=== PATIENT | female | born 1930 | race Hispanic/Latino ===

== ENCOUNTER 2017-04-13 13:21 | Inpatient (IN) | payer MEDICARE, BC ==
[2017-04-13 13:21] VITALS: PULSE 53
[2017-04-13 14:12] VITALS: BMI 26.9
--- NOTE | 2017-04-13 14:14 | ED PDOC ---
Arrival/HPI - General Chief Complaint: Trauma Time Seen by Provider: 04/13/17 14:05 Historian: Patient, Family (son ) - History of Present Illness Narrative History of Present Illness (Text): 04/13/17 14:11 A 87 year old female, whose past medical history includes CHF, Atrial fibrillation with RVR, pulmonary hypertension, hyperlipidemia, presents to the emergency department accompanied by son, for status post fall. The patient states she was startled out of bed because she believed she heard a knock on the door so when she got up her left leg went numb and she fell to the ground. The patient states she went straight down on to her buttock and did not hit her head or any other parts of the body. The patient is complaining of left hip pain that radiates to her left lower back. She denies any loss of consciousness , chest pain, abdominal pain, headaches, or any other complaints at this time. Time/Duration: 4-6 hours Symptom Onset: Sudden Severity Level: Mild Activities at Onset: Other Context: Other (fall ) Past Medical History - Provider Review Nursing Documentation Reviewed: Yes - Infectious Disease Hx of Infectious Diseases: None - Tetanus Immunization Tetanus Immunization: Unknown - Cardiac Hx Cardiac Disorders: Yes (Afib (on coumadin)) Hx Congestive Heart Failure: Yes Hx Hypertension: Yes - Pulmonary Hx Respiratory Disorders: Yes Other/Comment: pulmonary htn - Neurological Hx Neurological Disorder: No - HEENT Hx Cataracts: Yes (b/l EYE CATARACT SURGERY) - Renal Hx Renal Disorder: No - Endocrine/Metabolic Hx Endocrine Disorders: No - Hematological/Oncological Hx Blood Transfusions: No Hx Blood Transfusion Reaction: No - Integumentary Hx Dermatological Disorder: No Other/Comment: ble dry discolored brown skin,b/l feet brown discolored skin and long thick toenails, right foot crooked toes unable to spread toes open, callouses r ft toes 2 and 3, b/l bunyons, reddened buttocks ( from previous triage) - Musculoskeletal/Rheumatological Hx Musculoskeletal Disorders: Yes Hx Arthritis: Yes Hx Falls: Yes - Gastrointestinal Hx Gastrointestinal Disorders: No - Genitourinary/Gynecological Hx Reproductive Disorders: No - Psychiatric Hx Depression: No Hx Emotional Abuse: No Hx Physical Abuse: No Hx Substance Use: No - Surgical History Other/Comment: pt "can't remember what" - Anesthesia Hx Anesthesia: Yes Hx Anesthesia Reactions: No Hx Malignant Hyperthermia: No - Suicidal Assessment Feels Threatened In Home Enviroment: No Family/Social History - Physician Review Nursing Documentation Reviewed: Yes Family/Social History: No Known Family HX Smoking Status: Never Smoked Hx Alcohol Use: No Hx Substance Use: No Hx Substance Use Treatment: No Allergies/Home Meds Allergies/Adverse Reactions: Allergies No Known Allergies Allergy (Verified 04/13/17 14:05) Home Medications: Home Meds Medication Instructions Recorded Confirmed Magnesium Oxide [Mag-Ox] 400 mg PO DAILY 11/16/15 04/13/17 Folic Acid 1 mg PO DAILY 12/26/15 06/20/16 Pantoprazole [Protonix EC Tab] 40 mg PO DAILY 12/26/15 04/13/17 Tadalafil [Adcirca] 40 mg PO BID 06/15/16 04/13/17 Fenofibrate [Tricor] 48 mg PO DAILY 04/13/17 04/13/17 Warfarin [Coumadin] 7 mg PO 1800 04/13/17 04/13/17 Review of Systems - Physician Review All systems were reviewed & negative as marked: Yes - Review of Systems Cardiovascular: absent: Chest Pain Gastrointestinal: absent: Abdominal Pain Musculoskeletal: Back Pain (left lower back pain ), Other (left hip pain ) Physical Exam Vital Signs Reviewed: Yes Vital Signs Temp Pulse Resp BP Pulse Ox 04/13/17 15:08 79 18 145/74 98 04/13/17 14:10 98.0 F 85 18 146/96 H 97 Appearance: Positive for: Well-Appearing, Non-Toxic, Comfortable Pain Distress: None Mental Status: Positive for: Alert and Oriented X 3 - Systems Exam Head: Present: Atraumatic, Normocephalic Pupils: Present: PERRL Extroacular Muscles: Present: EOMI Conjunctiva: Present: Normal Mouth: Present: Moist Mucous Membranes Nose (Internal): No: Epistaxis Neck: Present: Normal Range of Motion. No: MIDLINE TENDERNESS Respiratory/Chest: Present: Clear to Auscultation, Good Air Exchange. No: Respiratory Distress, Accessory Muscle Use Cardiovascular: Present: Regular Rate and Rhythm. No: Murmurs Abdomen: No: Tenderness, Distention, Peritoneal Signs Back: No: Midline Tenderness Upper Extremity: Present: Normal ROM, NORMAL PULSES. No: Cyanosis, Edema Lower Extremity: Present: NORMAL PULSES, Other (LLE NVI). No: Edema, CALF TENDERNESS, Normal ROM (decreased ROM due to left hip pain ) Neurological: Present: GCS=15, Motor Func Grossly Intact, Normal Sensory Function Skin: Present: Warm, Dry. No: Rashes Psychiatric: Present: Alert, Oriented x 3 Medical Decision Making ED Course and Treatment: 04/13/17 14:[address] Kohler will admit, req consult Dr Castañeda disc w Dr Castañeda - RAD Interpretation Radiology Orders: 04/13/17 14:11 Hip Left [HIP MIN 2V W/ PELVIS LT] [RAD] Stat 04/13/17 14:12 CHEST ONE VIEW [RAD] Stat - Medication Orders Current Medication Orders: Diltiazem HCl (Cardizem Cd) 240 mg PO DAILY [facility] Docusate Sodium (Colace) 100 mg PO DAILY [facility] Fenofibrate (Tricor) 48 mg PO DAILY [facility] Ferrous Sulfate (Feosol Liq) 300 mg PO TID [facility] Furosemide (Lasix) 40 mg PO DAILY [facility] Losartan Potassium (Cozaar) 100 mg PO DAILY [facility] Magnesium Oxide (Mag-Ox) 400 mg PO DAILY [facility] Morphine Sulfate (Morphine) 2 mg IVP Q4H PRN PRN Reason: Pain, severe (8-10) Pantoprazole Sodium (Protonix Ec Tab) 40 mg PO DAILY [facility] Sildenafil Citrate (Revatio) 10 mg PO TID [facility] Sotalol HCl (Betapace) 80 mg PO BID [facility] Discontinued Medications Ibuprofen (Motrin Tab) 600 mg PO STAT STA Stop: 04/13/17 14:10 Last Admin: 04/13/17 14:01 Dose: 600 mg MAR Pain/Vitals Document 04/13/17 14:01 SE (Rec: 04/13/17 14:10 SE [id number]) Pain Reassessment Is This A Pain ReAssessment? No Sleep Is patient sleeping during reassessment? No Presence of Pain Presence of Pain Yes Pain Scale Used Pain Scale Used Numeric Location Left, Right or Bilateral Left Pain Location Body Site Thigh Morphine Sulfate (Morphine) 2 mg IVP STAT STA Stop: 04/13/17 15:00 Last Admin: 04/13/17 15:24 Dose: 2 mg MAR Pain Assessment Document 04/13/17 15:24 EQ (Rec: 04/13/17 15:24 EQ [id number]) Pain Reassessment Is this a pain reassessment? No Sleep Is patient sleeping during reassessment? No Presence of Pain Presence of Pain Yes IVP Administration Document 04/13/17 15:24 EQ (Rec: 04/13/17 15:24 EQ [id number]) Charges for Administration # of IVP Administrations 1 Potassium Chloride (K-Dur 20 Meq Er Tab) 40 meq PO STAT STA Stop: 04/13/17 16:41 Last Admin: 04/13/17 17:08 Dose: 40 meq - Scribe Statement The provider has reviewed the documentation as recorded by the Abhilash Alegre Provider Scribe Attestation: All medical record entries made by the Abhilash were at my direction and personally dictated by me. I have reviewed the chart and agree that the record accurately reflects my personal performance of the history, physical exam, medical decision making, and the department course for this patient. I have also personally directed, reviewed, and agree with the discharge instructions and disposition. Disposition/Present on Arrival - Present on Arrival Any Indicators Present on Arrival: No History of DVT/PE: No History of Uncontrolled Diabetes: No Urinary Catheter: No History of Decub. Ulcer: No History Surgical Site Infection Following: None - Disposition Have Diagnosis and Disposition been Completed?: Yes Diagnosis: Closed left hip fracture Disposition: HOSPITALIZED Disposition Time: 14:54 Patient Problems: Current Active Problems Problem Status Onset Closed left hip fracture Acute Condition: STABLE
--- NOTE | 2017-04-13 14:57 | RAD ---
PROCEDURE: Pelvis and left hip HISTORY: fall pain COMPARISON: TECHNIQUE: Three views FINDINGS: There is a displaced subcapital hip fracture on the left side. The pelvis is intact. The right hip is unremarkable IMPRESSION: Displaced left-sided subcapital hip fracture
--- NOTE | 2017-04-13 14:58 | RAD ---
PROCEDURE: CHEST RADIOGRAPH, 1 VIEW HISTORY: fall COMPARISON: 12/26/2015 FINDINGS: LUNGS: Clear. PLEURA: No pneumothorax or pleural fluid seen. CARDIOVASCULAR: Mild cardiomegaly OSSEOUS STRUCTURES: Vertebroplasties in the mid thoracic spine VISUALIZED UPPER ABDOMEN: Normal. OTHER FINDINGS: None. IMPRESSION: No active disease.
[2017-04-13] MEDS ORDERED: Morphine 2 mg/ml ISec IVP STA (14:59)
[2017-04-13 15:40] LABS: BASO # 0.02 K/mm3 (0.0-2.0); BASO % 0.2 % (0.0-3.0); EOS % 0.1 % (1.5-5.0); GRAN # 9.43 (1.4-6.5); HEMATOCRIT 39.1 % (36.0-48.0); LYMPH # 0.5 (1.2-3.4); LYMPH % 4.8 % (22.0-35.0); MEAN CELL VOLUME 63.8 fl (80.0-105.0); MEAN CORPUSCULAR HEMOGLOBIN 21.2 pg (25.0-35.0); MEAN CORPUSCULAR HGB CONC 33.2 g/dl (31.0-37.0); MEAN PLATELET VOLUME 9.3 fl (7.0-11.0); MONO % 8.9 % (1.0-6.0); PLATELET COUNT 189 10^3/uL (120.0-450.0); RED CELL DISTRIBUTION WIDTH 15.9 % (11.5-14.5)
--- NOTE | 2017-04-13 15:41 | CP.PCM.HP ---
History of Present Illness - History of Present Illness History of Present Illness: CC: Left hip pain s/p fall HPI: Mrs. Juan José Dave is an 87 y/o female with a pmhx of Afib, CHF, HTN, Pulm HTN, HLD, SUSIE. Osteoarthritis, hypokalemia presents to ED with L hip pain after a fall. Pt notes that she was laying down sleeping, when she awoke, stood up from the couch and attempted to walk. She notes that she had numbness and tingling in the L leg and had fell on the L hip after 2 steps. She reports that the only part of her body that hit the ground was her hip. She had laid on the floor for ~3 hours and eventually crawled to phone and called son for help. Pt notes a sharp constant pain that is mostly on the L posterior femoral head region with radiation to anterior hip region. She rates the pain a 10/10 severity with minimal improvement with ibuprofen 650mg. She reported no loss of consciousness, dizziness, fatigue, lethargy or palpitations prior to and after the fall. She lives by herself, and is mostly independent with help from a skip operator 3 days/week. Upon ROS, pt notes denies headache, nausea, vomiting, generalized weakness, dizziness, confusion, chest pain, palpitations or SOB. PMH: See HPI PSH: Kyphoplasty L2-L3, L3-L4, cholecystectomy, b/l cataract surgery Famhx: none Allergies: NKDA Meds: Cardizem 240 q/d, warfarin 7 mg qd, tadalafil 40mg bid, sotalol 80mg bid, protonix 40mg qd, Mg oxide 400mg qd, Losartan 100mg qd, Lasix 40mg qd, Ferrous sulfate 300mg tid, Fenofibrate 48mg qd Cardio: Dr. Johnson Pulm: Dr. Yates Present on Admission - Present on Admission Any Indicators Present on Admission: No Review of Systems - Review of Systems Review of Systems: 12 point ROS benign otherwise noted in HPI Past Patient History - Infectious Disease Hx of Infectious Diseases: None - Tetanus Immunizations Tetanus Immunization: Unknown - Past Medical History & Family History Past Medical History?: Yes - Past Social History Smoking Status: Never Smoked Alcohol: None Drugs: Denies - CARDIAC Hx Cardiac Disorders: Yes (Afib (on coumadin)) Hx Congestive Heart Failure: Yes Hx Hypertension: Yes - PULMONARY Hx Respiratory Disorders: Yes Other/Comment: pulmonary htn - NEUROLOGICAL Hx Neurological Disorder: No - HEENT Hx Cataracts: Yes (b/l EYE CATARACT SURGERY) - RENAL Hx Chronic Kidney Disease: No - ENDOCRINE/METABOLIC Hx Endocrine Disorders: No - HEMATOLOGICAL/ONCOLOGICAL Hx Blood Transfusions: No Hx Blood Transfusion Reaction: No - INTEGUMENTARY Hx Dermatological Problems: No Other/Comment: ble dry discolored brown skin,b/l feet brown discolored skin and long thick toenails, right foot crooked toes unable to spread toes open, callouses r ft toes 2 and 3, b/l bunyons, reddened buttocks ( from previous triage) - MUSCULOSKELETAL/RHEUMATOLOGICAL Hx Musculoskeletal Disorders: Yes Hx Arthritis: Yes Hx Falls: Yes - GASTROINTESTINAL Hx Gastrointestinal Disorders: No - GENITOURINARY/GYNECOLOGICAL Hx Reproductive Disorders: No - PSYCHIATRIC Hx Depression: No Hx Emotional Abuse: No Hx Physical Abuse: No Hx Substance Use: No - SURGICAL HISTORY Other/Comment: pt "can't remember what" - ANESTHESIA Hx Anesthesia: Yes Hx Anesthesia Reactions: No Hx Malignant Hyperthermia: No Meds Allergies/Adverse Reactions: Allergies Allergy/AdvReac Type Severity Reaction Status Date / Time No Known Allergies Allergy Verified 04/13/17 14:05 Physical Exam - Constitutional Appears: No Acute Distress - Head Exam Head Exam: ATRAUMATIC, NORMAL INSPECTION, NORMOCEPHALIC - Eye Exam Eye Exam: EOMI, PERRL - ENT Exam ENT Exam: Mucous Membranes Moist - Respiratory Exam Respiratory Exam: Rales (left lower base - mild), NORMAL BREATHING PATTERN - Cardiovascular Exam Cardiovascular Exam: Irregular Rhythm. absent: Clicks, Systolic Murmur - GI/Abdominal Exam GI & Abdominal Exam: Normal Bowel Sounds, Soft. absent: Firm, Guarding, Tenderness - Extremities Exam Extremities exam: Positive for: pedal edema (+1 bilateral ). Negative for: calf tenderness Additional comments: Left lower hip pain with palpation, tender to log roll of left lower extremity - Neurological Exam Neurological exam: Alert, Oriented x3 Additional comments: motor and sensory grossly intact - Psychiatric Exam Psychiatric exam: Normal Affect, Normal Mood - Skin Skin Exam: Normal Color, Warm Results - Vital Signs Recent Vital Signs: Last Vital Signs Temp 98.0 F 04/13/17 14:10 Pulse 79 04/13/17 15:08 Resp 18 04/13/17 15:08 BP 145/74 04/13/17 15:08 Pulse Ox 98 04/13/17 15:08 - Labs Result Diagrams: 04/14/17 06:00 04/14/17 06:00 Assessment & Plan - Assessment and Plan (Free Text) Assessment: 87 y/o female with a pmhx of Afib, CHF, HTN, Pulm HTN, HLD, iron deficiency anemia, osteoarthritis, hypokalemia presents to ED with L hip pain after a mechanical fall. Patient to be admitted and evaluated by orthopedic surgery for possible intervention Plan: 1. Left subcapital hip fracture - Hip xray showing displaced subcapital hip fracture on left side, pelvis intact - Orthopedic consult with Dr. Douglas - Type and Screen - Pain control with 2mg Morphine IV Q4H PRN severe pain - Spoke with orthopedic service, Physician aware of case will be calling for recommendations and orders regarding INR and anti coagulation therapy going forward 2. Atrial fibrillation, Chronic, AC with coumadin - EKG showing atrial flutter - PT, INR - F/u INR for AC therapy going forward - Cardio Consult with Dr. Johnson, f/u recs 3. CHF - Last known EF 43% in 11/2015 - Continue Lasix, losartan, cardizem - Cardio consult, Dr. Johnson 4. Pulmonary HTN - Taladafil NF, will place patient on sildanifil temporarily while patient family brings in home dose taladafil - Dr. Yates consulted 5. HLD - cont home med DVT ppx: SCDs GI ppx: Protonix Case and plan discussed and reviewed with attending - Date & Time Date: 04/13/17 Time: 15:58
[2017-04-13 15:55] LABS: ALKALINE PHOSPHATASE 82 U/L (38-126); ALT/SGPT 26 U/L (7-56); AST/SGOT 40 U/L (14-36); BILIRUBIN,TOTAL 1.4 mg/dL (0.2-1.3); BLOOD UREA NITROGEN 20 mg/dL (7-21); CALCIUM 9.7 mg/dL (8.4-10.5); CARBON DIOXIDE 25 mmol/L (21-33); CHLORIDE 103 mmol/L (98-107); GFR AFRICAN-AMERICAN > 60; GLUCOSE,RANDOM 125 mg/dL (70-110); POTASSIUM 3.4 mmol/L (3.6-5.0); SODIUM 141 mmol/L (132-148); TOTAL PROTEIN 8.4 g/dL (5.8-8.3)
[2017-04-13 15:58] LABS: INR 2.54 (0.93-1.08); PARTIAL THROMBOPLASTIN TIME 45.8 Seconds (25.1-36.5)
[2017-04-13 16:07] LABS: ALB/GLOB RATIO 1.3 (1.1-1.8)
[2017-04-13] MEDS ORDERED: Potassium Chloride 20 mEq ER Tab PO STA (16:40)
[2017-04-13 16:54] LABS: ANISOCYTOSIS SLIGHT; NEUTROPHIL 85 % (50.0-70.0); PLATELET ESTIMATE NORMAL (NORMAL)
[2017-04-13] MEDS: Ferrous Sulfate 300 mg/5 mL Liq UD PO SCH (17:53)
[2017-04-13] MEDS: Morphine 2 mg/ml ISec IVP PRN (17:54)
[2017-04-13] MEDS ORDERED: Sildenafil 20 MG TAB PO SCH (18:00)
[2017-04-14 02:13] LABS: URINE BILIRUBIN NEGATIVE (NEGATIVE); URINE BLOOD LARGE (NEGATIVE); URINE GLUCOSE (UA) NEGATIVE (NEGATIVE); URINE KETONE NEGATIVE (NEGATIVE); URINE LEUKOCYTE ESTERASE TRACE Leu/uL (NEGATIVE); URINE PROTEIN 30 mg/dL (<30 mg/dL); URINE UROBILINOGEN 0.2 E.U./dL (<1 E.U./dL)
[2017-04-14 02:24] LABS: URINE APPEARANCE SL CLOUDY (CLEAR); URINE COLOR YELLOW (YELLOW)
[2017-04-14 02:58] LABS: URINE BACTERIA MOD (NEG); URINE EPITHELIAL CELLS 0 - 2 /hpf (0-5)
[2017-04-14] MEDS: Morphine 2 mg/ml ISec IVP PRN (05:42)
[2017-04-14 06:49] LABS: INR 2.34 (0.93-1.08)
[2017-04-14 07:37] LABS: BASO # 0.03 K/mm3 (0.0-2.0); BASO % 0.5 % (0.0-3.0); EOS # 0.1 (0.0-0.7); EOS % 1.8 % (1.5-5.0); GRAN # 5.23 (1.4-6.5); GRAN % 78.5 % (50.0-68.0); HEMATOCRIT 37.3 % (36.0-48.0); LYMPH # 0.6 (1.2-3.4); LYMPH % 9.3 % (22.0-35.0); MEAN CELL VOLUME 64.2 fl (80.0-105.0); MEAN CORPUSCULAR HEMOGLOBIN 20.5 pg (25.0-35.0); MEAN CORPUSCULAR HGB CONC 31.9 g/dl (31.0-37.0); MEAN PLATELET VOLUME 10.1 fl (7.0-11.0); MONO # 0.7 (0.1-0.6); MONO % 9.9 % (1.0-6.0); RED CELL DISTRIBUTION WIDTH 15.8 % (11.5-14.5); WHITE BLOOD COUNT 6.7 10^3/ul (4.5-11.0)
--- NOTE | 2017-04-14 07:38 | CON ---
PULMONARY CONSULTATION DATE: 04/14/2017 REFERRING PHYSICIAN: Mahendra Kohler MD REASON FOR CONSULTATION: Pulmonary hypertension. HISTORY OF PRESENT ILLNESS: The patient is an 87-year-old female, with past medical history significant for pulmonary hypertension, congestive heart failure, atrial fibrillation, hypertension, hyperlipidemia, who presents to [facility] after falling at home. Apparently, the patient was lying down on her couch, when she thought she heard somebody at the door. She then tried to gallardo to the door, and fell on her left side. After the fall, she experienced significant left hip pain. In the Emergency Room, the patient was noted to have a left hip fracture. She was thus admitted for additional evaluation. The patient is not short of breath at rest. She does have chronic mild dyspnea on exertion. There is no history of cough or sputum production. There is no history of chest pain, coughing up of blood, or chest pain - made worse with deep respirations. There is no history of temperatures, chills or infectious exposure. There is no history of night sweats, weight loss or appetite change prior to the above events. No history of calf pains. No history of syncope or diaphoresis. No history of recent travel. REVIEW OF SYSTEMS: No history of nausea, vomiting or diarrhea. No acute urinary symptoms. No new neurologic complaints. Rest of the review of systems negative. ALLERGIES: NO KNOWN ALLERGIES SOCIAL HISTORY: Negative for tobacco and negative for alcohol. FAMILY HISTORY: No inheritable diseases. HOME MEDICATIONS: Include Coumadin, Cardizem, Adcirca, Betapace, Protonix, Cozaar, Lasix, Feosol, TriCor and folate. PHYSICAL EXAMINATION GENERAL: The patient appears comfortable at rest. She is not short of breath. VITAL SIGNS (last noted in the computer): Temperature is 98.7, pulse 82, respirations 18, blood pressure 126/94. Oxygen saturation on room air is 95%. HEENT: Normocephalic and atraumatic. No JVD. CARDIOVASCULAR: Systolic ejection murmur at the lower left sternal border. No S3 gallop. LUNGS: Clear bilaterally. EXTREMITIES: Mild edema is noted in both lower extremities. There is no clubbing or cyanosis. The calves are nontender to palpation. GI: Abdomen is soft, nontender and nondistended. Bowel sounds are positive. SKIN: No acute rash. NEUROLOGIC: Exam limited at the present time. LABORATORY DATA: Chest x-ray was done yesterday and reviewed. There is no active disease noted. Hips/pelvic x-ray was also done. There is a displaced left-sided hip fracture noted. CBC: White count 11.0, hemoglobin 13.0, hematocrit 39.1, platelets of 189. INR 2.34. Complete metabolic profile: Potassium 3.4, glucose 125, bilirubin 1.4, AST 40, protein 8.4. Rest of the metabolic profiles within normal limits. IMPRESSION: 1. Left hip fracture, status post fall at home. 2. Pulmonary hypertension. 3. Chronic atrial fibrillation. 4. Hypertension. PLAN: I did discuss the case with the patient at length and reviewed the chart at length. I have also discussed the case with the night nurse at length. Apparently, the patient was rising from her couch to answer the door, when she took a sudden fall on her left side. After the fall, she experienced significant left-sided hip pain. She was thus evaluated in the Emergency Room. In the Emergency Room, she was noted to have a left hip fracture, and subsequently admitted. As above, the patient does experience chronic mild dyspnea on exertion. She offers no other new/significant pulmonary symptoms. On physical exam, her lungs are clear. Oxygen saturation on room air is 95%. I do know the patient well-- from the office. She is on Revatio for her pulmonary hypertension. Since being on the Revatio, she has had a significant decrease in her dyspnea. Again, she offers no new or significant pulmonary symptoms. The patient is for surgery in the near future. She will be at a mildly increased risk for perioperative complications, secondary to her pulmonary hypertension. However, at this point, there are no absolute pulmonary contraindications to surgery. I will be happy to follow the patient closely with you. I will discuss the above with Dr. Kohler later today. Thank you very much for this pulmonary consultation. Abdias Yates MD [facility]
--- NOTE | 2017-04-14 07:40 | CARD ---
APPROVED REPORT EKG Measurement Heart [id number] <Conclusion> Atrial flutter with variable AV block with premature ventricular or aberrantly conducted complexes Prolonged QT Abnormal ECG
[2017-04-14] MEDS ORDERED: Phytonadione 10 mg/ml Inj (Adult) SC ONE (08:04)
[2017-04-14] MEDS: cefTRIAXone 1 gm 1 GM/100 ML BAG IVPB SCH (08:10)
[2017-04-14 08:32] LABS: ALB/GLOB RATIO 1.2 (1.1-1.8); ALKALINE PHOSPHATASE 64 U/L (38-126); ALT/SGPT 27 U/L (7-56); AST/SGOT 38 U/L (14-36); BILIRUBIN,TOTAL 1.8 mg/dL (0.2-1.3); BLOOD UREA NITROGEN 23 mg/dL (7-21); CALCIUM 9.4 mg/dL (8.4-10.5); CARBON DIOXIDE 25 mmol/L (21-33); CHLORIDE 104 mmol/L (98-107); GFR AFRICAN-AMERICAN > 60; GLUCOSE,RANDOM 117 mg/dL (70-110); PHOSPHOROUS 3.2 mg/dL (2.5-4.5); POTASSIUM 4.1 mmol/L (3.6-5.0); SODIUM 140 mmol/L (132-148); TOTAL PROTEIN 7.5 g/dL (5.8-8.3)
--- NOTE | 2017-04-14 08:50 | CP.PCM.PN ---
Subjective - Date & Time of Evaluation Date of Evaluation: 04/14/17 Time of Evaluation: 07:50 - Subjective Subjective: PGY-[address] ALBERT/DR. TALLEY Patient seen and examined at bedside. No acute events reported overnight. Patient complains of left hip pain and some difficulty with breathing. Patient was placed on o2 NC with improvement of symptoms. Patient denies chest pain, abdominal pain, weakness, numbness, n/v/f/c. Patient to be evaluated by cardio and pulmonary today for surgical clearance with ortho for repair of left hip fracture. Patient reports pain controlled. Objective - Vital Signs/Intake and Output Vital Signs (last 24 hours): Temp Pulse Resp BP Pulse Ox 98.7 F 82 20 126/94 H 95 04/14/17 00:00 04/14/17 00:00 04/14/17 00:00 04/14/17 00:00 04/14/17 00:00 Intake and Output: 04/14/17 04/14/17 06:59 18:59 Intake Total 360 Output Total 350 Balance 10 - Medications Medications: Current Medications Diltiazem HCl (Cardizem Cd) 240 mg PO DAILY [facility] Docusate Sodium (Colace) 100 mg PO DAILY [facility] Fenofibrate (Tricor) 48 mg PO DAILY [facility] Ferrous Sulfate (Feosol Liq) 300 mg PO TID [facility] Last Admin: 04/13/17 17:53 Dose: 300 mg Furosemide (Lasix) 40 mg PO DAILY [facility] Ceftriaxone Sodium (Rocephin 1 Gram Ivpb (D5w)) 1 gm in 100 mls @ 100 mls/hr IVPB Q24H [facility] PRN Reason: Protocol Last Admin: 04/14/17 08:10 Dose: 100 mls/hr Losartan Potassium (Cozaar) 100 mg PO DAILY [facility] Magnesium Oxide (Mag-Ox) 400 mg PO DAILY [facility] Morphine Sulfate (Morphine) 2 mg IVP Q4H PRN PRN Reason: Pain, severe (8-10) Last Admin: 04/14/17 05:42 Dose: 2 mg Pantoprazole Sodium (Protonix Ec Tab) 40 mg PO DAILY [facility] Sildenafil Citrate (Revatio) 10 mg PO TID [facility] Last Admin: 04/13/17 17:52 Dose: 10 mg Sotalol HCl (Betapace) 80 mg PO BID [facility] Last Admin: 04/13/17 17:53 Dose: 80 mg - Labs Labs: 04/14/17 06:00 04/14/17 06:00 PT 26.2 SECONDS (9.4-12.5) H 04/14/17 06:00 INR 2.34 (0.93-1.08) H 04/14/17 06:00 APTT 45.8 Seconds (25.1-36.5) H 04/13/17 15:15 - Constitutional Appears: Non-toxic - Head Exam Head Exam: ATRAUMATIC, NORMAL INSPECTION, NORMOCEPHALIC - Eye Exam Eye Exam: EOMI, PERRL Pupil Exam: PERRL - ENT Exam ENT Exam: Mucous Membranes Moist - Neck Exam Neck Exam: Full ROM - Respiratory Exam Respiratory Exam: Rales (mild R>L), NORMAL BREATHING PATTERN. absent: Rhonchi, Wheezes - Cardiovascular Exam Cardiovascular Exam: Irregular Rhythm. absent: JVD - GI/Abdominal Exam GI & Abdominal Exam: Soft, Normal Bowel Sounds. absent: Tenderness - Extremities Exam Extremities Exam: Pedal Edema (+1). absent: Calf Tenderness, Tenderness Additional comments: Left Hip tender to palpation lateral, left lower extremity log roll ilicit pain response - Neurological Exam Neurological Exam: Alert, Awake, Oriented x3 Additional comments: motor and sensory groslsy intact, able to move all four extremities - Psychiatric Exam Psychiatric exam: Normal Affect, Normal Mood - Skin Skin Exam: Dry, Normal Color Assessment and Plan - Assessment and Plan (Free Text) Assessment: 87 y/o female with a pmhx of Afib, CHF, HTN, Pulm HTN, HLD, iron deficiency anemia, osteoarthritis, hypokalemia presents to ED with L hip pain after a mechanical fall. Patient undergoing evaluation and management of chronic diseases and for potential surgical intervention of left hip fracture Plan: 1. Left subcapital hip fracture - Hip xray showing displaced subcapital hip fracture on left side, pelvis intact - Orthopedic consult with Dr. Douglas - Type and Screen - Pain control with 2mg Morphine IV Q4H PRN severe pain - Patient reciveing vitamin K for INR, awaiting drop in INR for surgery - PT/OT eval and tx s/p surgery 2. Atrial fibrillation, Chronic, AC with coumadin - EKG showing atrial flutter - holding coumadin at this time - PT, INR - Cardio Consult with Dr. Johnson, f/u recs 3. CHF - Last known EF 43% in 11/2015 - Continue Lasix, losartan, cardizem - Cardio consult, Dr. Johnson 4. Pulmonary HTN - Continue home tildalafil - Dr. Yates consulted, following 5. HLD - cont home med DVT ppx: SCDs GI ppx: Protonix Case and plan discussed and reviewed with attending
--- NOTE | 2017-04-14 09:39 | CON ---
DATE: 04/14/2017 HISTORY OF PRESENT ILLNESS: The patient is an 87-year-old woman with a left hip fracture after a fall out of bed. No loss of consciousness noted. PAST MEDICAL HISTORY: The patient's past medical history includes documented severe pulmonary hypertension in which she has been treated by Pulmonary. In addition, the patient has a documented cardiomyopathy with an ejection fraction of 40%. She suffers from hypertension as well as chronic atrial fibrillation which she has been treated with Coumadin. The patient denies loss of consciousness. No chest pain. She has chronic dyspnea. SOCIAL HISTORY: The patient is a former smoker. REVIEW OF SYSTEMS: 14-point review of systems was reviewed in detail. No angina. Negative edema in the lower extremities. No loss of consciousness, but chronic edema which is better on oxygen. PHYSICAL EXAMINATION: VITAL SIGNS: Blood pressure is 126/94, heart rate in the 80s, atrial fibrillation. NECK: Negative JVD. LUNGS: Without rales. HEART: S1, S2. EXTREMITIES: Without edema. DIAGNOSTIC DATA: EKG shows atrial fibrillation with nonspecific ST-T changes. LABORATORY DATA: The INR is 2.34. Chemistries, BUN and creatinine unremarkable. The glucose is 125. The hemoglobin is 11.9.. IMPRESSION: 1. Left hip fracture. 2. Status post fall without syncope. 3. Chronic atrial fibrillation. 4. Severe pulmonary hypertension. 5. Mild dilated cardiomyopathy. 6. Anemia. PLAN: Given these findings, we will need to reverse her coagulation with vitamin K in preparation for surgery. The patient is at increased risk for anesthesia given her severe pulmonary hypertension, her age as well as her mild cardiomyopathy. However, risks, benefit analysis will require that she undergo surgery to fix her hip as soon as possible. Toro Johnson MD
[2017-04-14] MEDS ORDERED: TADALAFIL 40 MG PO SCH (10:00)
[2017-04-14] MEDS ORDERED: Home Med 1 UNIT PO SCH (10:00)
[2017-04-14] MEDS: diltiaZEM 240 mg/24 Hours CD Cap PO SCH (10:26)
[2017-04-14] MEDS: Pantoprazole 40 mg EC Tab PO SCH (10:28)
[2017-04-14] MEDS: Ferrous Sulfate 300 mg/5 mL Liq UD PO SCH ×3 (10:28→18:16)
[2017-04-14] MEDS: Magnesium Oxide 400 mg Tab UD PO SCH (10:28)
[2017-04-14] MEDS ORDERED: TADALAFIL 20MG PO SCH (10:51)
[2017-04-14 12:53] LABS: INR 2.27 (0.93-1.08)
[2017-04-15] MEDS: cefTRIAXone 1 gm 1 GM/100 ML BAG IVPB SCH (07:25)
[2017-04-15 08:11] LABS: BASO # 0.02 K/mm3 (0.0-2.0); BASO % 0.2 % (0.0-3.0); EOS # 0.1 (0.0-0.7); EOS % 0.7 % (1.5-5.0); GRAN # 6.17 (1.4-6.5); GRAN % 76.9 % (50.0-68.0); HEMATOCRIT 37.1 % (36.0-48.0); LYMPH # 0.7 (1.2-3.4); LYMPH % 9.1 % (22.0-35.0); MEAN CORPUSCULAR HEMOGLOBIN 20.9 pg (25.0-35.0); MEAN CORPUSCULAR HGB CONC 32.6 g/dl (31.0-37.0); MEAN PLATELET VOLUME 9.4 fl (7.0-11.0); MONO # 1.1 (0.1-0.6); MONO % 13.1 % (1.0-6.0); RED CELL DISTRIBUTION WIDTH 15.6 % (11.5-14.5)
[2017-04-15 08:17] LABS: INR 1.42 (0.93-1.08)
--- NOTE | 2017-04-15 08:29 | CP.PCM.PN ---
Subjective - Date & Time of Evaluation Date of Evaluation: 04/15/17 Time of Evaluation: 06:45 - Subjective Subjective: PGY [address] TALLEY/DR. ALBERT Patient seen and evaluated on medical/surgical floor. No acute events overnight. Patient complains of continued left hip pain as on presentation. Patient denies chest pain, shob, abdominal pain, n/v/f/c. Patient NPO at midnight and pre-surgical abx given. Objective - Vital Signs/Intake and Output Vital Signs (last 24 hours): Temp Pulse Resp BP Pulse Ox 98.6 F 98 H 20 138/99 H 94 L 04/14/17 16:00 04/14/17 16:00 04/14/17 16:00 04/14/17 16:00 04/14/17 16:00 Intake and Output: 04/15/17 04/15/17 06:59 18:59 Intake Total 480 Output Total 600 Balance -120 - Medications Medications: Current Medications Diltiazem HCl (Cardizem Cd) 240 mg PO DAILY [facility] Last Admin: 04/14/17 10:26 Dose: 240 mg Docusate Sodium (Colace) 100 mg PO DAILY [facility] Last Admin: 04/14/17 10:27 Dose: 100 mg Fenofibrate (Tricor) 48 mg PO DAILY [facility] Last Admin: 04/14/17 10:26 Dose: 48 mg Ferrous Sulfate (Feosol Liq) 300 mg PO TID [facility] Last Admin: 04/14/17 18:16 Dose: Not Given Furosemide (Lasix) 40 mg PO DAILY [facility] Last Admin: 04/14/17 10:28 Dose: 40 mg Home Med (Home Med) 0 unit PO DAILY [facility] Ceftriaxone Sodium (Rocephin 1 Gram Ivpb (D5w)) 1 gm in 100 mls @ 100 mls/hr IVPB Q24H [facility] PRN Reason: Protocol Last Admin: 04/15/17 07:25 Dose: 100 mls/hr Losartan Potassium (Cozaar) 100 mg PO DAILY [facility] Last Admin: 04/14/17 10:28 Dose: 100 mg Magnesium Oxide (Mag-Ox) 400 mg PO DAILY [facility] Last Admin: 04/14/17 10:28 Dose: 400 mg Morphine Sulfate (Morphine) 2 mg IVP Q4H PRN PRN Reason: Pain, severe (8-10) Last Admin: 04/14/17 05:42 Dose: 2 mg Pantoprazole Sodium (Protonix Ec Tab) 40 mg PO DAILY [facility] Last Admin: 04/14/17 10:28 Dose: 40 mg Sotalol HCl (Betapace) 80 mg PO BID [facility] Last Admin: 04/14/17 18:16 Dose: 80 mg - Labs Labs: 04/15/17 07:30 04/14/17 06:00 PT 15.7 SECONDS (9.4-12.5) H 04/15/17 07:30 INR 1.42 (0.93-1.08) H 04/15/17 07:30 APTT 45.8 Seconds (25.1-36.5) H 04/13/17 15:15 - Constitutional Appears: No Acute Distress - Head Exam Head Exam: ATRAUMATIC, NORMAL INSPECTION, NORMOCEPHALIC - Eye Exam Eye Exam: EOMI, PERRL Pupil Exam: PERRL - ENT Exam ENT Exam: Mucous Membranes Moist - Neck Exam Neck Exam: Full ROM - Respiratory Exam Respiratory Exam: Clear to Ausculation Bilateral, NORMAL BREATHING PATTERN - Cardiovascular Exam Cardiovascular Exam: Irregular Rhythm. absent: JVD, Murmur - GI/Abdominal Exam GI & Abdominal Exam: Soft, Normal Bowel Sounds. absent: Tenderness - Extremities Exam Extremities Exam: absent: Calf Tenderness, Pedal Edema - Back Exam Back Exam: tenderness - Neurological Exam Neurological Exam: Alert, Awake, Oriented x3 Additional comments: motor and sensory grossly intact, patient able to move all four extremities - Psychiatric Exam Psychiatric exam: Normal Affect, Normal Mood - Skin Skin Exam: Dry, Warm. absent: Rash Assessment and Plan - Assessment and Plan (Free Text) Assessment: 87 y/o female with a pmhx of Afib, CHF, HTN, Pulm HTN, HLD, iron deficiency anemia, osteoarthritis, hypokalemia presents to ED with L hip pain after a mechanical fall. Patient undergoing evaluation and management of chronic diseases and for potential surgical intervention of left hip fracture Plan: 1. Left subcapital hip fracture - Hip xray showing displaced subcapital hip fracture on left side, pelvis intact - Orthopedic consult with Dr. Douglas, f/u recs - decrease INR, left hemiarthroplasty when appropriate - Pain control with 2mg Morphine IV Q4H PRN severe pain - Vit K for decrease INR, INR 1.42 - PT/OT eval and tx s/p surgery - Patient is at increased risk for anethesia given her comorbitdites including pulm htn, mild cardiomyopathy and age, however risk, benefit analysis requires surgical intervention for her left hip 2. Atrial fibrillation, Chronic, AC with coumadin - EKG showing atrial flutter - holding coumadin at this time - PT, INR cont to monitor - Cardio Consult with Dr. Johnson, f/u recs 3. CHF - Last known EF 43% in 11/2015 - Continue Lasix, losartan, cardizem - Cardio following 4. UTI - UA positive for leuk est, nitrate - Continue antibioitcs 5. Pulmonary HTN - Continue home tildalafil - Dr. Yates consulted, following - okay for surgery, cont revatio for pulm htn 6. HLD - cont home med DVT ppx: SCDs GI ppx: Protonix Case and plan discussed and reviewed with attending
--- NOTE | 2017-04-15 08:36 | PN ---
DATE: 04/15/2017 PULMONARY PROGRESS NOTE SUBJECTIVE: The patient appears comfortable this morning. She is not short of breath at rest. PHYSICAL EXAMINATION: VITAL SIGNS: (Last noted in the computer): Temperature is 98.6, pulse is 98, respirations are 18, and blood pressure is 138/99. Oxygen saturation on room air is between 94% and 96%. HEENT: Normocephalic and atraumatic. NECK: No JVD. CARDIOVASCULAR: Systolic ejection murmur at the lower left sternal border. No S3 gallop. LUNGS: Clear bilaterally. EXTREMITIES: Mild edema is noted in both lower extremities. There is no cyanosis or clubbing. The calves are nontender to palpation. GASTROINTESTINAL: Abdomen is soft, nontender and nondistended. Bowel sounds are positive. SKIN: No acute rash. NEUROLOGIC: Exam is limited at the present time. IMPRESSION 1. Left hip fracture, status post fall at home. 2. Pulmonary hypertension. 3. Chronic atrial fibrillation. 4. Hypertension. PLAN: The patient appears comfortable this morning. She is not short of breath at rest. She does state to feeling better overall. On physical exam, her lungs remain clear. Oxygen saturation on room air is 94% to 96%. The patient will be continued on her Revatio - for her pulmonary hypertension. I did discuss the case with the nurse at length. The patient is for probable surgery this morning. I will follow the patient closely with you. I will discuss the above with Dr. Kholer. Abdias Yates MD MTDD
--- NOTE | 2017-04-15 08:36 | CON ---
DATE: 04/14/2017 INPATIENT CONSULTATION REASON FOR CONSULTATION: Left hip fracture. HISTORY OF PRESENT ILLNESS: Consult is as follows; this is an 87-year-old female who was admitted to the hospital yesterday, status post fall with left hip pain and inability to ambulate. By report the patient is ambulatory. She does have a walker that she uses at home. Today, she complains of pain in her left lower extremity. She denies any other injuries. PHYSICAL EXAMINATION: GENERAL: This is an elderly female in no apparent distress. She is awake, alert, and oriented x3. EXTREMITIES: Examination of the left lower extremity is slightly externally rotated. Some mild shortening is appreciated. She has some ecchymosis noted about the left proximal femur. She has some pain with passive range of motion of the hip. Her thigh is otherwise soft. There is no obvious knee effusion. No gross crepitus or deformity is appreciated. Her calf is soft and nontender. She is able to move her ankle and toes without any pain. Evaluation of the right lower extremity again shows no pain with passive range of motion of the right hip. No obvious swelling or deformity is appreciated. Her thigh and calf are soft and nontender. Neurovascularly, she is intact. LABORATORY DATA: X-rays of the left hip show a displaced left femoral neck fracture. IMPRESSION: Left hip fracture. PLAN: At this point, the patient does have a history of atrial fibrillation and takes Coumadin for this. Her INR today is at 2.3. She is on vitamin K. We will await for the INR to normalize prior to proceeding with left hemiarthroplasty. I did explain this to the patient, as well as her Arya and they understand this. She also was started on some antibiotics for a positive new UA. We will follow up serial INR's and possibly schedule her for surgery in the next day. Wade Castañeda MD
[2017-04-15 08:53] LABS: URINE BILIRUBIN SMALL (NEGATIVE); URINE BLOOD LARGE (NEGATIVE); URINE GLUCOSE (UA) NEGATIVE (NEGATIVE); URINE KETONE NEGATIVE (NEGATIVE); URINE LEUKOCYTE ESTERASE SMALL Leu/uL (NEGATIVE); URINE PROTEIN 30 mg/dL (<30 mg/dL)
[2017-04-15 08:54] LABS: URINE APPEARANCE CLEAR (CLEAR); URINE COLOR YELLOW (YELLOW)
[2017-04-15 09:11] LABS: ALB/GLOB RATIO 1.1 (1.1-1.8); ALKALINE PHOSPHATASE 71 U/L (38-126); ALT/SGPT 24 U/L (7-56); AST/SGOT 34 U/L (14-36); BILIRUBIN,TOTAL 1.4 mg/dL (0.2-1.3); BLOOD UREA NITROGEN 17 mg/dL (7-21); CALCIUM 9.3 mg/dL (8.4-10.5); CARBON DIOXIDE 25 mmol/L (21-33); CHLORIDE 104 mmol/L (98-107); GFR AFRICAN-AMERICAN > 60; GLUCOSE,RANDOM 154 mg/dL (70-110); POTASSIUM 3.7 mmol/L (3.6-5.0); SODIUM 140 mmol/L (132-148); TOTAL PROTEIN 7.5 g/dL (5.8-8.3)
[2017-04-15 09:23] LABS: URINE BACTERIA MANY (NEG); URINE RBC TNTC /hpf (0-2)
[2017-04-15 09:24] LABS: URINE AMORPHOUS SEDIMENT FEW
[2017-04-15] MEDS: Sodium Chloride 0.9% 1,000 ML IV SCH (09:36)
[2017-04-15] MEDS: Magnesium Oxide 400 mg Tab UD PO SCH (09:39)
[2017-04-15] MEDS: Pantoprazole 40 mg EC Tab PO SCH (09:40)
[2017-04-15] MEDS: Ferrous Sulfate 300 mg/5 mL Liq UD PO SCH ×2 (09:41→14:36)
[2017-04-15] MEDS: diltiaZEM 240 mg/24 Hours CD Cap PO SCH (09:43)
[2017-04-15] MEDS: TADALAFIL 20MG PO SCH (11:30)
[2017-04-15 12:29] LABS: INR 1.39 (0.93-1.08)
--- NOTE | 2017-04-15 13:33 | CP.PCM.PN ---
Subjective - Date & Time of Evaluation Date of Evaluation: 04/15/17 Time of Evaluation: 13:31 - Subjective Subjective: ortho f/u Dr. Castañeda lab called regarding urine culture. States >100,000 colonies, likely E. coli sensitivities will be completed tomorrow patient on ceftriaxone Dr. Castañeda aware Objective - Vital Signs/Intake and Output Vital Signs (last 24 hours): Temp Pulse Resp BP Pulse Ox 98.7 F 95 H 20 141/95 H 97 04/15/17 08:00 04/15/17 09:43 04/15/17 08:00 04/15/17 09:43 04/15/17 08:00 Intake and Output: 04/15/17 04/15/17 06:59 18:59 Intake Total 480 Output Total 600 Balance -120 - Medications Medications: Current Medications Diltiazem HCl (Cardizem Cd) 240 mg PO DAILY [facility] Last Admin: 04/15/17 09:43 Dose: 240 mg Docusate Sodium (Colace) 100 mg PO DAILY [facility] Last Admin: 04/15/17 09:40 Dose: 100 mg Fenofibrate (Tricor) 48 mg PO DAILY [facility] Last Admin: 04/15/17 09:49 Dose: 48 mg Ferrous Sulfate (Feosol Liq) 300 mg PO TID [facility] Last Admin: 04/15/17 09:41 Dose: Not Given Furosemide (Lasix) 40 mg PO DAILY [facility] Last Admin: 04/15/17 09:40 Dose: 40 mg Home Med (Home Med) 0 unit PO DAILY [facility] Last Admin: 04/15/17 11:30 Dose: 1 unit Ceftriaxone Sodium (Rocephin 1 Gram Ivpb (D5w)) 1 gm in 100 mls @ 100 mls/hr IVPB Q24H [facility] PRN Reason: Protocol Last Admin: 04/15/17 07:25 Dose: 100 mls/hr Sodium Chloride (Sodium Chloride 0.9%) 1,000 mls @ 50 mls/hr IV .Q20H [facility] Last Admin: 04/15/17 09:36 Dose: 50 mls/hr Losartan Potassium (Cozaar) 100 mg PO DAILY [facility] Last Admin: 04/15/17 09:40 Dose: 100 mg Magnesium Oxide (Mag-Ox) 400 mg PO DAILY [facility] Last Admin: 04/15/17 09:39 Dose: 400 mg Morphine Sulfate (Morphine) 2 mg IVP Q4H PRN PRN Reason: Pain, severe (8-10) Last Admin: 04/14/17 05:42 Dose: 2 mg Pantoprazole Sodium (Protonix Ec Tab) 40 mg PO DAILY [facility] Last Admin: 04/15/17 09:40 Dose: 40 mg Sotalol HCl (Betapace) 80 mg PO BID [facility] Last Admin: 04/15/17 09:43 Dose: 80 mg - Labs Labs: 04/15/17 07:30 04/15/17 07:30 PT 15.4 SECONDS (9.4-12.5) H 04/15/17 12:00 INR 1.39 (0.93-1.08) H 04/15/17 12:00 APTT 45.8 Seconds (25.1-36.5) H 04/13/17 15:15
[2017-04-15] MEDS ORDERED: Lidocaine 1% Inj (20ml) ONE (15:58)
[2017-04-15] MEDS ORDERED: Etomidate 20 mg/10ml Inj IV ONE (15:59)
[2017-04-15] MEDS ORDERED: Bupivacaine 0.5% Inj(30mL) ONE (16:14)
[2017-04-15] MEDS ORDERED: Succinylcholine 200 mg/10 ml Inj IV ONE (17:11)
[2017-04-15] MEDS ORDERED: Rocuronium 10 mg/ml (5 ml) ONE (17:11)
[2017-04-15] MEDS ORDERED: Oxycodone/Acetaminophen 5/325 mg Tab PO PRN (17:13)
--- NOTE | 2017-04-15 17:31 | CARD ---
APPROVED REPORT EXAM: Two-dimensional and M-mode echocardiogram with Doppler and color Doppler. INDICATION PRE-OP/LT HIP FRACTURE/SEVERE PULM HTN 2D DIMENSIONS Left Atrium (2D)5.5 (1.6-4.0cm)IVSd1.0 (0.7-1.1cm) LVDd3.5 (3.9-5.9cm)PWd1.0 (0.7-1.1cm) M-Mode DIMENSIONS Aortic Root3.70 (2.2-3.7cm)Aortic Cusp Exc.1.40 (1.5-2.0cm) Aortic Valve AoV Peak Fvludiyo655.0cm/sAoV VTI27.3cmAO Peak GR.10mmHg LVOT Peak Fbohchlf52.7cm/sLVOT VTI15.30cmAO Mean GR.5mmHg AI P 1/2 [id number] Mitral Valve E/A ratio0.0 TDI E/Lateral E'0.0E/Medial E'0.0 Pulmonary Valve PV Peak Szbyijgb46.5cm/sPV Peak Grad.2mmHg Tricuspid Valve TR Peak [id number]/sRAP [id number] Peak Gr.54mmHg [id number] LEFT VENTRICLE The left ventricle is normal size. There is normal left ventricular wall thickness. Left ventricle systolic function is low normal.EF-50% There is normal LV segmental wall motion. No left ventricle thrombus noted on this study. There is no ventricular septal defect visualized. There is no left ventricular aneurysm. There is no mass noted in the left ventricle. RIGHT VENTRICLE The right ventricle is mildly dilated. There is normal right ventricular wall thickness. The right ventricular systolic function is normal. ATRIA The left atrium is moderate to severely dilated. The right atrium is borderline dilated. The interatrial septum is intact with no evidence for an atrial septal defect. AORTIC VALVE The aortic valve is thickened but opens well. The aortic valve is mildly sclerotic. There is moderate aortic regurgitation. There is no aortic valvular stenosis. There is no aortic valvular vegetation. MITRAL VALVE The mitral valve is thickened but opens well. Mitral annular calcification is mild. Mitral regurgitation is mild to moderate. There is no mitral valve stenosis. There is no evidence of mitral valve prolapse. TRICUSPID VALVE The tricuspid valve leaflets are thickened , but open well. There is moderate to severe tricuspid regurgitation. There is moderate to severe pulmonary hypertension.RVSP-64 mmof hg There is no tricuspid valve stenosis. There is no tricuspid valve prolapse or vegetation. PULMONIC VALVE The pulmonary valve is normal in structure. There is trace to mild pulmonic valvular regurgitation. There is no pulmonic valvular stenosis. GREAT VESSELS The aortic root is normal in size. The ascending aorta is normal in size. The pulmonary artery is normal. The IVC is normal in size and collapses >50% with inspiration. PERICARDIAL EFFUSION There is no pleural effusion. There is no pericardial effusion. <Conclusion> The left ventricle is normal size. There is normal left ventricular wall thickness. Left ventricle systolic function is low normal.EF-50% The right ventricle is mildly dilated. There is moderate aortic regurgitation. Mitral regurgitation is mild to moderate. There is moderate to severe tricuspid regurgitation. There is moderate to severe pulmonary hypertension.RVSP-64 mmof hg The IVC is normal in size and collapses >50% with inspiration. There is no pericardial effusion. No Vegetation or thrombus noted.
--- NOTE | 2017-04-15 18:19 | PN ---
DATE: 04/15/2017 SUBJECTIVE: The patient is comfortable, but anxious, awaiting surgery today. OBJECTIVE: VITAL SIGNS: Blood pressure is 141/94, the heart rate is in the 90s. NECK: Negative JVD. LUNGS: Without rales. HEART: S1, S2. EXTREMITIES: Without edema. LABORATORY DATA: Hemoglobin is 12.1. Chemistries, BUN and creatinine are unremarkable. IMPRESSION: 1. Status post left hip fracture. 2. Severe pulmonary hypertension. 3. Mild dilated cardiomyopathy. 4. Chronic atrial fibrillation. 5. Status post fall. Her INR is still 1.39. The patient may need fresh frozen prior to surgery. The patient is at increased risk for anesthesia, especially given her severe pulmonary hypertension. Toro Johnson MD
[2017-04-15] MEDS ORDERED: Neostigmine Methylsulfate 3mg/3ml Syringe IV ONE (19:51)
[2017-04-15] MEDS ORDERED: Glycopyrrolate 0.2 mg/ml (2ml vial) ONE (19:52)
[2017-04-15] MEDS: HYDROmorphone 0.5 mg/0.5 ml ISec IVP PRN ×2 (20:40→21:25)
[2017-04-15] MEDS ORDERED: Lactated Ringer's 1,000 ML IV SCH (20:45)
[2017-04-15] MEDS ORDERED: HYDROmorphone 0.5 mg/0.5 ml ISec ONE (21:23)
--- NOTE | 2017-04-15 21:53 | CP.PCM.CON ---
<Donald Shaver - Last Filed: 04/15/17 22:11> History of Present Illness - History of Present Illness History of Present Illness: ICU consult note: 87 y/o female with a pmh of Afib, CHF, HTN, Pulm HTN, HLD, SUSIE, Osteoarthritis, who initally presented to the ED with L hip pain following a fall. In the ED the patient had a hip/pelvis xray which showed a displaced L sided sucapital fracture. Pt was taken to the today OR for hip arhtroplasty. Due to pulm htn and extensive past medical history ICU was consulted for evaluation. Pt is currently doing well in the PACU. No complaints at this time. patient states that her pain is well controlled. No complaints. Denies any gonzalez, dizziness, f/c, sob, cp, palpitations, n/v/d. PMH: Afib, CHF, HTN, Pulm HTN, HLD, SUSIE, Osteoarthritis, PSH: Kyphoplasty L2-L3, L3-L4, cholecystectomy, b/l cataract surgery Famhx: denies Allergies: NKA Meds: refer to MAR Review of Systems - Review of Systems All systems: reviewed and no additional remarkable complaints except Past Patient History - Infectious Disease Hx of Infectious Diseases: None - Tetanus Immunizations Tetanus Immunization: Unknown - Past Medical History & Family History Past Medical History?: Yes - Past Social History Smoking Status: Never Smoked Alcohol: None Drugs: Denies - CARDIAC Hx Cardiac Disorders: Yes (Afib (on coumadin)) Hx Congestive Heart Failure: Yes Hx Hypertension: Yes - PULMONARY Hx Respiratory Disorders: Yes Other/Comment: pulmonary htn - NEUROLOGICAL Hx Neurological Disorder: No - HEENT Hx Cataracts: Yes (b/l EYE CATARACT SURGERY) - RENAL Hx Chronic Kidney Disease: No - ENDOCRINE/METABOLIC Hx Endocrine Disorders: No - HEMATOLOGICAL/ONCOLOGICAL Hx Blood Transfusions: No Hx Blood Transfusion Reaction: No - INTEGUMENTARY Hx Dermatological Problems: No Other/Comment: ble dry discolored brown skin,b/l feet brown discolored skin and long thick toenails, right foot crooked toes unable to spread toes open, callouses r ft toes 2 and 3, b/l bunyons, reddened buttocks ( from previous triage) - MUSCULOSKELETAL/RHEUMATOLOGICAL Hx Musculoskeletal Disorders: Yes Hx Arthritis: Yes Hx Falls: Yes - GASTROINTESTINAL Hx Gastrointestinal Disorders: No - GENITOURINARY/GYNECOLOGICAL Hx Reproductive Disorders: No - PSYCHIATRIC Hx Depression: No Hx Emotional Abuse: No Hx Physical Abuse: No Hx Substance Use: No - SURGICAL HISTORY Hx Surgeries: Yes - ANESTHESIA Hx Anesthesia Reactions: No Hx Malignant Hyperthermia: No Meds Allergies/Adverse Reactions: Allergies Allergy/AdvReac Type Severity Reaction Status Date / Time No Known Allergies Allergy Verified 04/13/17 14:05 - Medications Medications: Current Medications Diltiazem HCl (Cardizem Cd) 240 mg PO DAILY [facility] Last Admin: 04/15/17 09:43 Dose: 240 mg Docusate Sodium (Colace) 100 mg PO DAILY [facility] Last Admin: 04/15/17 09:40 Dose: 100 mg Enoxaparin Sodium (Lovenox) 40 mg SC Q24H [facility] PRN Reason: Protocol Fenofibrate (Tricor) 48 mg PO DAILY [facility] Last Admin: 04/15/17 09:49 Dose: 48 mg Ferrous Sulfate (Feosol Liq) 300 mg PO TID [facility] Last Admin: 04/15/17 14:36 Dose: Not Given Furosemide (Lasix) 40 mg PO DAILY [facility] Last Admin: 04/15/17 09:40 Dose: 40 mg Home Med (Home Med) 0 unit PO DAILY [facility] Last Admin: 04/15/17 11:30 Dose: 1 unit Hydromorphone HCl (Dilaudid) 0.5 mg IVP Q15M PRN PRN Reason: Pain, moderate (4-7) Stop: 04/15/17 22:34 Last Admin: 04/15/17 21:25 Dose: 0.5 mg Ceftriaxone Sodium (Rocephin 1 Gram Ivpb (D5w)) 1 gm in 100 mls @ 100 mls/hr IVPB Q24H [facility] PRN Reason: Protocol Last Admin: 04/15/17 07:25 Dose: 100 mls/hr Sodium Chloride (Sodium Chloride 0.9%) 1,000 mls @ 50 mls/hr IV .Q20H [facility] Last Admin: 04/15/17 09:36 Dose: 50 mls/hr Vasopressin 20 units/ Sodium (Chloride) 101 mls @ 90.9 mls/hr IV .Q1H7M JENIFER; 0.3 U/MIN PRN Reason: Protocol Cefazolin Sodium 2 gm/ Sodium (Chloride) 100 mls @ 100 mls/hr IVPB Q8H [facility] PRN Reason: Protocol Stop: 04/16/17 10:59 Lactated Ringer's (Lactated Ringer's) 1,000 mls @ 75 mls/hr IV .[id number] [facility] Stop: 04/15/17 22:46 Losartan Potassium (Cozaar) 100 mg PO DAILY [facility] Last Admin: 04/15/17 09:40 Dose: 100 mg Magnesium Oxide (Mag-Ox) 400 mg PO DAILY [facility] Last Admin: 04/15/17 09:39 Dose: 400 mg Morphine Sulfate (Morphine) 2 mg IVP Q4H PRN PRN Reason: Pain, severe (8-10) Last Admin: 04/14/17 05:42 Dose: 2 mg Ondansetron HCl (Zofran Inj) 4 mg IVP ONCE PRN PRN Reason: Nausea/Vomiting Oxycodone/Acetaminophen (Percocet 5/325 Mg Tab) 1 tab PO Q4H PRN PRN Reason: Pain, moderate (4-7) Stop: 04/18/17 17:14 Pantoprazole Sodium (Protonix Ec Tab) 40 mg PO DAILY [facility] Last Admin: 04/15/17 09:40 Dose: 40 mg Sotalol HCl (Betapace) 80 mg PO BID [facility] Last Admin: 04/15/17 09:43 Dose: 80 mg Physical Exam - Constitutional Appears: No Acute Distress - Head Exam Head Exam: ATRAUMATIC, NORMOCEPHALIC - Eye Exam Eye Exam: EOMI, PERRL - ENT Exam ENT Exam: Mucous Membranes Moist - Respiratory Exam Respiratory Exam: Clear to Auscultation Bilateral. absent: Rales, Wheezes - Cardiovascular Exam Cardiovascular Exam: RRR, +S1, +S2 - GI/Abdominal Exam GI & Abdominal Exam: Soft. absent: Normal Bowel Sounds, Tenderness - Extremities Exam Extremities exam: Negative for: calf tenderness, pedal edema Additional comments: LLE: motor intact, sensation intact, pulse present - Neurological Exam Neurological exam: Alert, Oriented x3 - Psychiatric Exam Psychiatric exam: Normal Affect, Normal Mood - Skin Skin Exam: Dry, Intact, Warm Results - Vital Signs Recent Vital Signs: Last Vital Signs Temp 97.2 F L 04/15/17 21:43 Pulse 92 H 04/15/17 21:43 Resp 18 04/15/17 21:43 BP 105/71 04/15/17 21:43 Pulse Ox 98 04/15/17 21:43 - Labs Result Diagrams: 04/15/17 07:30 04/15/17 07:30 Labs: Laboratory Results - last 24 hr 04/15/17 04/15/17 04/15/17 07:30 07:30 07:30 WBC 8.0 RBC 5.80 Hgb 12.1 Hct 37.1 MCV 64.0 L MCH 20.9 L MCHC 32.6 RDW 15.6 H Plt Count 166 MPV 9.4 Gran % 76.9 H Lymph % (Auto) 9.1 L [place] % (Auto) 13.1 H Eos % (Auto) 0.7 L Baso % (Auto) 0.2 Gran # 6.17 Lymph # 0.7 L [place] # 1.1 H Eos # 0.1 Baso # 0.02 PT 15.7 H INR 1.42 H Sodium 140 Potassium 3.7 Chloride 104 Carbon Dioxide 25 Anion Gap 15 BUN 17 Creatinine 0.7 Est GFR ( Amer) > 60 Est GFR (Non-Af Amer) > 60 Random Glucose 154 H Calcium 9.3 Total Bilirubin 1.4 H AST 34 ALT 24 Alkaline Phosphatase 71 Total Protein 7.5 Albumin 4.0 Globulin 3.5 Albumin/Globulin Ratio 1.1 Urine Color Urine Appearance Urine pH Ur Specific [place] Urine Protein Urine Glucose (UA) Urine Ketones Urine Blood Urine Nitrate Urine Bilirubin Urine Urobilinogen Ur Leukocyte Esterase Urine RBC Urine WBC Ur Epithelial Cells Amorphous Sediment Urine Bacteria Hyaline Casts Fine Granular Casts Urine Other 04/15/17 04/15/17 08:35 12:00 WBC RBC Hgb Hct MCV MCH MCHC RDW Plt Count MPV Gran % Lymph % (Auto) [place] % (Auto) Eos % (Auto) Baso % (Auto) Gran # Lymph # [place] # Eos # Baso # PT 15.4 H INR 1.39 H Sodium Potassium Chloride Carbon Dioxide Anion Gap BUN Creatinine Est GFR ( Amer) Est GFR (Non-Af Amer) Random Glucose Calcium Total Bilirubin AST ALT Alkaline Phosphatase Total Protein Albumin Globulin Albumin/Globulin Ratio Urine Color Yellow Urine Appearance Clear Urine pH 6.0 Ur Specific [place] >= 1.030 Urine Protein 30 H Urine Glucose (UA) Negative Urine Ketones Negative Urine Blood Large H Urine Nitrate Negative Urine Bilirubin Small H Urine Urobilinogen 1.0 H Ur Leukocyte Esterase Small H Urine RBC Tntc Urine WBC 10 - 15 Ur Epithelial Cells 4 - 5 Amorphous Sediment Few Urine Bacteria Many Hyaline Casts 0 - 2 Fine Granular Casts 0 - 2 Urine Other Uyeast Assessment & Plan - Assessment and Plan (Free Text) Assessment: 87 y/o female with a pmhx of Afib, CHF, HTN, Pulm HTN, HLD, iron deficiency anemia, and osteoarthritis presents with L hip fracture s/p L hip arthroplasty. Neuro: - Stable Pulm: - O2 supplementation as needed - f/u pulm consult recs - Continue home tildalafil and revatio for pulm htn Cardio: - holding coumadin at this time; will resume as per ortho recs - Cardio Consult with Dr. Johnson, f/u recs - Continue Lasix 40 Po, losartan, cardizem, sotalol - Lovenox 40mg BID - Echo reviewed showing EF of 50% and mod to severe pulm HTN and TR GI: - GI ppx Renal: - Stable - replete electrolytes as needed ID: - UTI - Cont Rocephin - Ancef prior to surgery Endo: - Maintain euglycemic with blood glucose btwn 140-180 EXT: - s/p hip arthroplasty - Hip xray showing displaced subcapital hip fracture on left side, pelvis intact - Orthopedic consult with Dr. Castañeda, f/u recs - Pain control with dilaudid and percocet - PT/OT eval Plan to observe the patient for close monitoring in the ICU given her extensive past medical history. Thank you for consult, Case and plan discussed and reviewed in detail with Dr Camp. <Zoë CABRERA,Arik - Last Filed: 04/16/17 08:55> Meds - Medications Medications: Current Medications Diltiazem HCl (Cardizem Cd) 240 mg PO DAILY [facility] Last Admin: 04/15/17 09:43 Dose: 240 mg Docusate Sodium (Colace) 100 mg PO DAILY [facility] Last Admin: 04/15/17 09:40 Dose: 100 mg Enoxaparin Sodium (Lovenox) 40 mg SC Q24H [facility] PRN Reason: Protocol Fenofibrate (Tricor) 48 mg PO DAILY [facility] Last Admin: 04/15/17 09:49 Dose: 48 mg Ferrous Sulfate (Feosol Liq) 300 mg PO TID [facility] Last Admin: 04/15/17 14:36 Dose: Not Given Furosemide (Lasix) 40 mg PO DAILY [facility] Last Admin: 04/15/17 09:40 Dose: 40 mg Home Med (Home Med) 0 unit PO DAILY [facility] Last Admin: 04/15/17 11:30 Dose: 1 unit Ceftriaxone Sodium (Rocephin 1 Gram Ivpb (D5w)) 1 gm in 100 mls @ 100 mls/hr IVPB Q24H [facility] PRN Reason: Protocol Last Admin: 04/15/17 07:25 Dose: 100 mls/hr Sodium Chloride (Sodium Chloride 0.9%) 1,000 mls @ 50 mls/hr IV .Q20H [facility] Last Admin: 04/15/17 09:36 Dose: 50 mls/hr Vasopressin 20 units/ Sodium (Chloride) 101 mls @ 90.9 mls/hr IV .Q1H7M [facility]; 0.3 U/MIN PRN Reason: Protocol Cefazolin Sodium 2 gm/ Sodium (Chloride) 100 mls @ 100 mls/hr IVPB Q8H [facility] PRN Reason: Protocol Stop: 04/16/17 10:59 Last Admin: 04/16/17 02:00 Dose: 100 mls/hr Losartan Potassium (Cozaar) 100 mg PO DAILY [facility] Last Admin: 04/15/17 09:40 Dose: 100 mg Magnesium Oxide (Mag-Ox) 400 mg PO DAILY [facility] Last Admin: 04/15/17 09:39 Dose: 400 mg Morphine Sulfate (Morphine) 2 mg IVP Q4H PRN PRN Reason: Pain, severe (8-10) Last Admin: 04/16/17 01:30 Dose: 2 mg Ondansetron HCl (Zofran Inj) 4 mg IVP ONCE PRN PRN Reason: Nausea/Vomiting Oxycodone/Acetaminophen (Percocet 5/325 Mg Tab) 1 tab PO Q4H PRN PRN Reason: Pain, moderate (4-7) Stop: 04/18/17 17:14 Pantoprazole Sodium (Protonix Ec Tab) 40 mg PO DAILY [facility] Last Admin: 04/15/17 09:40 Dose: 40 mg Sotalol HCl (Betapace) 80 mg PO BID [facility] Last Admin: 04/15/17 09:43 Dose: 80 mg Results - Vital Signs Recent Vital Signs: Last Vital Signs Temp 98 F 04/16/17 04:00 Pulse 103 H 04/16/17 06:20 Resp 14 04/16/17 06:20 BP 101/67 04/15/17 21:58 Pulse Ox 96 04/16/17 06:20 - Labs Result Diagrams: 04/16/17 06:00 04/16/17 06:00 Labs: Laboratory Results - last 24 hr 04/15/17 04/15/17 04/15/17 07:30 08:35 12:00 WBC RBC Hgb Hct MCV MCH MCHC RDW Plt Count MPV Gran % Lymph % (Auto) [place] % (Auto) Eos % (Auto) Baso % (Auto) Gran # Lymph # [place] # Eos # Baso # PT 15.4 H INR 1.39 H Sodium 140 Potassium 3.7 Chloride 104 Carbon Dioxide 25 Anion Gap 15 BUN 17 Creatinine 0.7 Est GFR ( Amer) > 60 Est GFR (Non-Af Amer) > 60 Random Glucose 154 H Calcium 9.3 Total Bilirubin 1.4 H AST 34 ALT 24 Alkaline Phosphatase 71 Total Protein 7.5 Albumin 4.0 Globulin 3.5 Albumin/Globulin Ratio 1.1 Urine Color Yellow Urine Appearance Clear Urine pH 6.0 Ur Specific [place] >= 1.030 Urine Protein 30 H Urine Glucose (UA) Negative Urine Ketones Negative Urine Blood Large H Urine Nitrate Negative Urine Bilirubin Small H Urine Urobilinogen 1.0 H Ur Leukocyte Esterase Small H Urine RBC Tntc Urine WBC 10 - 15 Ur Epithelial Cells 4 - 5 Amorphous Sediment Few Urine Bacteria Many Hyaline Casts 0 - 2 Fine Granular Casts 0 - 2 Urine Other Uyeast 04/16/17 04/16/17 04/16/17 06:00 06:00 06:00 WBC 6.8 RBC 4.72 Hgb 9.9 L D Hct 30.6 L MCV 64.8 L MCH 21.0 L MCHC 32.4 RDW 15.4 H Plt Count 152 MPV 10.0 Gran % 66.2 Lymph % (Auto) 11.6 L [place] % (Auto) 21.0 H Eos % (Auto) 0.9 L Baso % (Auto) 0.3 Gran # 4.50 Lymph # 0.8 L [place] # 1.4 H Eos # 0.1 Baso # 0.02 PT 14.3 H INR 1.29 H Sodium 142 Potassium 3.4 L Chloride 108 H Carbon Dioxide 26 Anion Gap 12 BUN 15 Creatinine 0.6 L Est GFR ( Amer) > 60 Est GFR (Non-Af Amer) > 60 Random Glucose 118 H Calcium 8.3 L Total Bilirubin 1.0 AST 36 ALT 27 Alkaline Phosphatase 54 Total Protein 6.1 Albumin 3.1 Globulin 3.1 Albumin/Globulin Ratio 1.0 L Urine Color Urine Appearance Urine pH Ur Specific [place] Urine Protein Urine Glucose (UA) Urine Ketones Urine Blood Urine Nitrate Urine Bilirubin Urine Urobilinogen Ur Leukocyte Esterase Urine RBC Urine WBC Ur Epithelial Cells Amorphous Sediment Urine Bacteria Hyaline Casts Fine Granular Casts Urine Other Attending/Attestation - Attestation I have personally seen and examined this patient.: Yes I have fully participated in the care of the patient.: Yes I have reviewed all pertinent clinical information: Yes Notes (Text): -I agree with the above ICU consult note completed by the resident physician, with the following additions and/or changes: -The patient is an 87 year old woman with a history of chronic A-fib (on Coumadin), moderate to severe pulmonary HTN (RVSP=64), CHF (45-50%), HTN, OA and HL, who was admitted for a left hip fracture on 04/13/17 and is s/p left hip arthroplasty (POD#0). Because of her history of pulmonary HTN and elderly age, she will be observed post-operatively in the ICU overnight, at the request of anesthesia. Her procedure done earlier this evening was uncomplicated and she was extubated by anesthesia without difficulties in the OR. Orthopedics plans to start patient on prophylactic SC Lovenox tomorrow evening. Otherwise, the majority of her maintenance meds will be continued as already ordered. Also , incentive spirometery frequently.
[2017-04-16] MEDS ORDERED: ceFAZolin 2 GM in Sodium Chloride 0.9% 100 ML IVPB SCH (01:00)
[2017-04-16] MEDS: Morphine 2 mg/ml ISec IVP PRN ×2 (01:30→21:57)
[2017-04-16] MEDS: ceFAZolin 2 GM in Sodium Chloride 0.9% 100 ML IVPB SCH ×2 (02:00→09:53)
--- NOTE | 2017-04-16 03:18 | OP ---
PROCEDURE DATE: 04/15/2017 PREOPERATIVE DIAGNOSIS: Left femoral neck fracture. POSTOPERATIVE DIAGNOSIS: Left femoral neck fracture. PROCEDURE: Left hip hemiarthroplasty. SURGEON: Wade Castañeda MD TECHNOLOGY SUPPORT ANALYST: Dr. Castañeda is assisted by Garett Garcia, the physician anesthesiologist assistant certified. Ms. Garcia was currently present throughout the entire case and assisted in the patient's positioning, manipulation of the extremity during the surgery, retraction, as well as wound closure. TYPE OF ANESTHESIA: General. ESTIMATED BLOOD LOSS: 100 mL. COMPLICATIONS: None. IMPLANT: Biomet hemiarthroplasty bipolar. INDICATIONS FOR PROCEDURE: This is an 87-year-old female with multiple medical problems, who presented status post fall with left hip pain. Clinical and radiographic examination consistent with a displaced left femoral neck fracture. Recommendation was for a left hip hemiarthroplasty once the patient was medically optimized. The risks, benefits, and alternatives for procedure were discussed with the patient as well as the patient's son and informed consent was obtained. OPERATIVE PROCEDURE: After the surgical site was signed and verified in the preoperative holding area, the patient was taken to the operating room and placed supine on the operating room table. After administration of general anesthesia, the patient received 2 g of Ancef IV. The patient was positioned in the lateral decubitus position with the left hip up towards the ceiling. An axillary roll was placed in the right axilla. Care was taken to make sure all bony prominences and nerves were well padded and protected. Venodyne boot was placed on the nonoperative extremity and the left lower extremity was prepped and draped in the usual sterile fashion. The bony landmarks were identified about the left hip, approximately 9 cm curvilinear incision was made over the proximal femur. Soft tissue was dissected sharply down to the fascia, and the fascia was incised. Charnley retractor was placed. Short external rotators were identified, tagged, and resected off the proximal femur. T-type capsulotomy was performed and the hip was dislocated. A Corkscrew was used to remove the femoral head and this was measured on the back table. The acetabulum was inspected for any debris or any fractures. At this point, a femoral neck resection was performed and the medullary canal of the proximal femur was reamed and broached sequentially to allow for a 11 mm Press-Fit stem. With a trial stem in place, the calcar was planed and a trial neck and head was placed. The hip was reduced and was taken through range of motion, was noted to be stable with approximately equal limb lengths. At this point, the hip was reduced and trial components were removed. The hip joint was pulse lavaged with antibiotic saline solution. The bony surfaces were dried, and the actual stem was then impacted into place. The actual head was then impacted over the stem and the hip was again reduced. Again, the patient was noted to have approximately equal limb lengths and stable through range of motion. Satisfied, the capsule was repaired to bone using #1 Vicryl suture. The short external rotators were also repaired to bone. The deep fascia was closed using #1 Vicryl suture. The subcutaneous tissue was closed using 0 Vicryl and 2-0 Vicryl suture and the skin was closed using jocelyn. A sterile dressing was applied and an abduction pillow was placed. The patient was transferred supine and taken to recovery room, still intubated, but in stable condition. Wade Castañeda MD
[2017-04-16 06:28] LABS: BASO # 0.02 K/mm3 (0.0-2.0); BASO % 0.3 % (0.0-3.0); EOS # 0.1 (0.0-0.7); EOS % 0.9 % (1.5-5.0); GRAN # 4.5 (1.4-6.5); GRAN % 66.2 % (50.0-68.0); HEMATOCRIT 30.6 % (36.0-48.0); LYMPH # 0.8 (1.2-3.4); LYMPH % 11.6 % (22.0-35.0); MEAN CELL VOLUME 64.8 fl (80.0-105.0); MEAN CORPUSCULAR HGB CONC 32.4 g/dl (31.0-37.0); MONO # 1.4 (0.1-0.6); RED CELL DISTRIBUTION WIDTH 15.4 % (11.5-14.5); WHITE BLOOD COUNT 6.8 10^3/ul (4.5-11.0)
[2017-04-16 06:48] LABS: ALKALINE PHOSPHATASE 54 U/L (38-126); ALT/SGPT 27 U/L (7-56); AST/SGOT 36 U/L (14-36); BLOOD UREA NITROGEN 15 mg/dL (7-21); CALCIUM 8.3 mg/dL (8.4-10.5); CARBON DIOXIDE 26 mmol/L (21-33); CHLORIDE 108 mmol/L (98-107); GFR AFRICAN-AMERICAN > 60; GLUCOSE,RANDOM 118 mg/dL (70-110); INR 1.29 (0.93-1.08); POTASSIUM 3.4 mmol/L (3.6-5.0); SODIUM 142 mmol/L (132-148); TOTAL PROTEIN 6.1 g/dL (5.8-8.3)
--- NOTE | 2017-04-16 07:26 | CP.CCUPN ---
<Glo Albertsy - Last Filed: 04/16/17 13:09> CCU Subjective - Physician Review Subjective (Free Text): Critical Care Progress Note for Dr. Segura Patient seen and examined at bedside. No acute events overnight. She is POD #1 s/p Left hip hemiarthroplasty. Pain is well controlled. Arterial line removed this am. Patient has no complaints at this time. Patient denies n/v/f/chills/ chest pain/abdominal pain. 1 CCU Objective - Vital Signs / Intake & Output Vital Signs (Last 4 hours): Vital Signs Temp Pulse Resp Pulse Ox 04/16/17 06:20 103 H 14 96 04/16/17 06:10 101 H 29 H 82 L 04/16/17 06:00 98 H 29 H 100 04/16/17 05:50 109 H 18 95 04/16/17 05:40 103 H 18 93 L 04/16/17 05:30 98 H 21 98 04/16/17 05:20 95 H 21 95 04/16/17 05:10 99 H 22 95 04/16/17 05:00 92 H 25 H 99 04/16/17 04:50 97 H 27 H 99 04/16/17 04:40 100 H 26 H 99 04/16/17 04:30 89 21 97 04/16/17 04:20 93 H 23 98 04/16/17 04:10 93 H 20 98 04/16/17 04:00 98 F 95 H 19 98 04/16/17 03:50 93 H 20 98 04/16/17 03:40 93 H 20 99 04/16/17 03:30 91 H 19 99 Intake and Output (Last 8hrs): Intake & Output 04/15/17 04/16/17 04/16/17 22:59 06:59 14:59 Intake Total 910 Output Total 200 Balance 710 Weight 140 lb Intake: IV 750 Right Antecubital 750 Oral 160 Output: Urine 200 Urethral (Law) 200 Other: # Bowel Movements 0 - Physical Exam Head: Positive for: Atraumatic, Normocephalic Pupils: Positive for: PERRL Extroacular Muscles: Positive for: EOMI Conjunctiva: Positive for: Normal Mouth: Positive for: Moist Mucous Membranes Nose (Internal): Negative for: Epistaxis Neck: Positive for: Normal Range of Motion. Negative for: MIDLINE TENDERNESS Respiratory/Chest: Positive for: Clear to Auscultation, Good Air Exchange. Negative for: Respiratory Distress, Accessory Muscle Use Cardiovascular: Positive for: Regular Rate and Rhythm. Negative for: Murmurs Abdomen: Negative for: Tenderness, Distention, Peritoneal Signs Back: Negative for: Midline Tenderness Upper Extremity: Positive for: Normal ROM, NORMAL PULSES, Other (arterial line removed). Negative for: Cyanosis, Edema Lower Extremity: Positive for: NORMAL PULSES, Neurovascularly Intact, Capillary Refill < 2 s, Other (dressing clean, dry, intact wihtout erythema, edema or evidenc of hematoma). Negative for: Edema, CALF TENDERNESS, Normal ROM ( decreased ROM due to left hip pain ) Neurological: Positive for: GCS=15, Motor Func Grossly Intact, Normal Sensory Function Skin: Positive for: Warm, Dry. Negative for: Rashes Psychiatric: Positive for: Alert, Oriented x 3 - Medications Active Medications: Active Medications Generic Name Dose Route Start Last Admin Trade Name Freq PRN Reason Stop Dose Admin Diltiazem HCl 240 mg 04/14/17 10:00 04/15/17 09:43 Cardizem Cd PO 240 mg DAILY JENIFER Administration Docusate Sodium 100 mg 04/14/17 10:00 04/15/17 09:40 Colace PO 100 mg DAILY JENIFER Administration Enoxaparin Sodium 40 mg 04/16/17 19:00 Lovenox SC Q24H JENIFER Protocol Fenofibrate 48 mg 04/14/17 10:00 04/15/17 09:49 Tricor PO 48 mg DAILY JENIFER Administration Ferrous Sulfate 300 mg 04/13/17 18:00 04/15/17 14:36 Feosol Liq PO Not Given TID JENIFER Furosemide 40 mg 04/14/17 10:00 04/15/17 09:40 Lasix PO 40 mg DAILY JENIFER Administration Home Med 0 unit 04/14/17 10:55 04/15/17 11:30 Home Med PO 1 unit DAILY JENIFER Administration Ceftriaxone Sodium 1 gm in 100 mls @ 100 mls/hr 04/14/17 07:30 04/15/17 07:25 Rocephin 1 Gram Ivpb (D5w) IVPB 100 mls/hr Q24H JENIFER Administration Protocol Sodium Chloride 1,000 mls @ 50 mls/hr 04/15/17 09:00 04/15/17 09:36 Sodium Chloride 0.9% IV 50 mls/hr .Q20H JENIFER Administration Vasopressin 20 units/ Sodium 101 mls @ 90.9 mls/hr 04/15/17 15:45 Chloride IV .Q1H7M JENIFER Protocol 0.3 U/MIN Cefazolin Sodium 2 gm/ Sodium 100 mls @ 100 mls/hr 04/16/17 02:00 04/16/17 02 :00 Chloride IVPB 04/16/17 10:59 100 mls/hr Q8H JENIFER Administration Protocol Losartan Potassium 100 mg 04/14/17 10:00 04/15/17 09:40 Cozaar PO 100 mg DAILY JENIFER Administration Magnesium Oxide 400 mg 04/14/17 10:00 04/15/17 09:39 Mag-Ox PO 400 mg DAILY JENIFER Administration Morphine Sulfate 2 mg 04/13/17 16:22 04/16/17 01:30 Morphine IVP 2 mg Q4H PRN Administration Pain, severe (8-10) Ondansetron HCl 4 mg 04/15/17 20:34 Zofran Inj IVP ONCE PRN Nausea/Vomiting Oxycodone/Acetaminophen 1 tab 04/15/17 17:13 Percocet 5/325 Mg Tab PO 04/18/17 17:14 Q4H PRN Pain, moderate (4-7) Pantoprazole Sodium 40 mg 04/14/17 10:00 04/15/17 09:40 Protonix Ec Tab PO 40 mg DAILY JENIFER Administration Sotalol HCl 80 mg 04/13/17 18:00 04/15/17 09:43 Betapace PO 80 mg BID JENIFER Administration - Patient Studies Lab Studies: Microbiology Studies 04/15/17 08:35 Gram Stain - Final Sputum Sputum Culture - Final 04/14/17 07:25 Urine Culture - Preliminary Urine,Law Gram Negative Evan Lab Studies 04/16/17 04/16/17 04/16/17 Range/Units 06:00 06:00 06:00 WBC 6.8 (4.5-11.0) 10^3/ul RBC 4.72 (3.5-6.1) 10^6/uL Hgb 9.9 L D (12.0-16.0) g/dL Hct 30.6 L (36.0-48.0) % MCV 64.8 L (80.0-105.0) fl MCH 21.0 L (25.0-35.0) pg MCHC 32.4 (31.0-37.0) g/dl RDW 15.4 H (11.5-14.5) % Plt Count 152 (120.0-450.0) 10^3/uL MPV 10.0 (7.0-11.0) fl Gran % 66.2 (50.0-68.0) % Lymph % (Auto) 11.6 L (22.0-35.0) % [place] % (Auto) 21.0 H (1.0-6.0) % Eos % (Auto) 0.9 L (1.5-5.0) % Baso % (Auto) 0.3 (0.0-3.0) % Gran # 4.50 (1.4-6.5) Lymph # 0.8 L (1.2-3.4) [place] # 1.4 H (0.1-0.6) Eos # 0.1 (0.0-0.7) Baso # 0.02 (0.0-2.0) K/mm3 PT 14.3 H (9.4-12.5) SECONDS INR 1.29 H (0.93-1.08) Sodium 142 (132-148) mmol/L Potassium 3.4 L (3.6-5.0) mmol/L Chloride 108 H (98-107) mmol/L Carbon Dioxide 26 (21-33) mmol/L Anion Gap 12 (10-20) BUN 15 (7-21) mg/dL Creatinine 0.6 L (0.7-1.2) mg/dl Est GFR ( Amer) > 60 Est GFR (Non-Af Amer) > 60 Random Glucose 118 H (70-110) mg/dL Calcium 8.3 L (8.4-10.5) mg/dL Total Bilirubin 1.0 (0.2-1.3) mg/dL AST 36 (14-36) U/L ALT 27 (7-56) U/L Alkaline Phosphatase 54 (38-126) U/L Total Protein 6.1 (5.8-8.3) g/dL Albumin 3.1 (3.0-4.8) g/dL Globulin 3.1 gm/dL Albumin/Globulin Ratio 1.0 L (1.1-1.8) Urine Color (YELLOW) Urine Appearance (CLEAR) Urine pH (4.7-8.0) Ur Specific [place] (1.005-1.035) Urine Protein (<30 mg/dL) mg/dL Urine Glucose (UA) (NEGATIVE) mg/dL Urine Ketones (NEGATIVE) mg/dL Urine Blood (NEGATIVE) Urine Nitrate (NEGATIVE) Urine Bilirubin (NEGATIVE) Urine Urobilinogen (<1 E.U./dL) E.U./dL Ur Leukocyte Esterase (NEGATIVE) [place]/uL Urine RBC (0-2) /hpf Urine WBC (0-6) /hpf Ur Epithelial Cells (0-5) /hpf Amorphous Sediment Urine Bacteria (NEG) Hyaline Casts /hpf Fine Granular Casts (0-2) /hpf Urine Other 04/15/17 04/15/17 04/15/17 Range/Units 12:00 08:35 07:30 WBC (4.5-11.0) 10^3/ul RBC (3.5-6.1) 10^6/uL Hgb (12.0-16.0) g/dL Hct (36.0-48.0) % MCV (80.0-105.0) fl MCH (25.0-35.0) pg MCHC (31.0-37.0) g/dl RDW (11.5-14.5) % Plt Count (120.0-450.0) 10^3/uL MPV (7.0-11.0) fl Gran % (50.0-68.0) % Lymph % (Auto) (22.0-35.0) % [place] % (Auto) (1.0-6.0) % Eos % (Auto) (1.5-5.0) % Baso % (Auto) (0.0-3.0) % Gran # (1.4-6.5) Lymph # (1.2-3.4) [place] # (0.1-0.6) Eos # (0.0-0.7) Baso # (0.0-2.0) K/mm3 PT 15.4 H (9.4-12.5) SECONDS INR 1.39 H (0.93-1.08) Sodium 140 (132-148) mmol/L Potassium 3.7 (3.6-5.0) mmol/L Chloride 104 (98-107) mmol/L Carbon Dioxide 25 (21-33) mmol/L Anion Gap 15 (10-20) BUN 17 (7-21) mg/dL Creatinine 0.7 (0.7-1.2) mg/dl Est GFR ( Amer) > 60 Est GFR (Non-Af Amer) > 60 Random Glucose 154 H (70-110) mg/dL Calcium 9.3 (8.4-10.5) mg/dL Total Bilirubin 1.4 H (0.2-1.3) mg/dL AST 34 (14-36) U/L ALT 24 (7-56) U/L Alkaline Phosphatase 71 (38-126) U/L Total Protein 7.5 (5.8-8.3) g/dL Albumin 4.0 (3.0-4.8) g/dL Globulin 3.5 gm/dL Albumin/Globulin Ratio 1.1 (1.1-1.8) Urine Color Yellow (YELLOW) Urine Appearance Clear (CLEAR) Urine pH 6.0 (4.7-8.0) Ur Specific [place] >= 1.030 (1.005-1.035) Urine Protein 30 H (<30 mg/dL) mg/dL Urine Glucose (UA) Negative (NEGATIVE) mg/dL Urine Ketones Negative (NEGATIVE) mg/dL Urine Blood Large H (NEGATIVE) Urine Nitrate Negative (NEGATIVE) Urine Bilirubin Small H (NEGATIVE) Urine Urobilinogen 1.0 H (<1 E.U./dL) E.U./dL Ur Leukocyte Esterase Small H (NEGATIVE) [place]/uL Urine RBC Tntc (0-2) /hpf Urine WBC 10 - 15 (0-6) /hpf Ur Epithelial Cells 4 - 5 (0-5) /hpf Amorphous Sediment Few Urine Bacteria Many (NEG) Hyaline Casts 0 - 2 /hpf Fine Granular Casts 0 - 2 (0-2) /hpf Urine Other Uyeast 04/15/17 04/15/17 Range/Units 07:30 07:30 WBC 8.0 (4.5-11.0) 10^3/ul RBC 5.80 (3.5-6.1) 10^6/uL Hgb 12.1 (12.0-16.0) g/dL Hct 37.1 (36.0-48.0) % MCV 64.0 L (80.0-105.0) fl MCH 20.9 L (25.0-35.0) pg MCHC 32.6 (31.0-37.0) g/dl RDW 15.6 H (11.5-14.5) % Plt Count 166 (120.0-450.0) 10^3/uL MPV 9.4 (7.0-11.0) fl Gran % 76.9 H (50.0-68.0) % Lymph % (Auto) 9.1 L (22.0-35.0) % [place] % (Auto) 13.1 H (1.0-6.0) % Eos % (Auto) 0.7 L (1.5-5.0) % Baso % (Auto) 0.2 (0.0-3.0) % Gran # 6.17 (1.4-6.5) Lymph # 0.7 L (1.2-3.4) [place] # 1.1 H (0.1-0.6) Eos # 0.1 (0.0-0.7) Baso # 0.02 (0.0-2.0) K/mm3 PT 15.7 H (9.4-12.5) SECONDS INR 1.42 H (0.93-1.08) Sodium (132-148) mmol/L Potassium (3.6-5.0) mmol/L Chloride (98-107) mmol/L Carbon Dioxide (21-33) mmol/L Anion Gap (10-20) BUN (7-21) mg/dL Creatinine (0.7-1.2) mg/dl Est GFR ( Amer) Est GFR (Non-Af Amer) Random Glucose (70-110) mg/dL Calcium (8.4-10.5) mg/dL Total Bilirubin (0.2-1.3) mg/dL AST (14-36) U/L ALT (7-56) U/L Alkaline Phosphatase (38-126) U/L Total Protein (5.8-8.3) g/dL Albumin (3.0-4.8) g/dL Globulin gm/dL Albumin/Globulin Ratio (1.1-1.8) Urine Color (YELLOW) Urine Appearance (CLEAR) Urine pH (4.7-8.0) Ur Specific [place] (1.005-1.035) Urine Protein (<30 mg/dL) mg/dL Urine Glucose (UA) (NEGATIVE) mg/dL Urine Ketones (NEGATIVE) mg/dL Urine Blood (NEGATIVE) Urine Nitrate (NEGATIVE) Urine Bilirubin (NEGATIVE) Urine Urobilinogen (<1 E.U./dL) E.U./dL Ur Leukocyte Esterase (NEGATIVE) [place]/uL Urine RBC (0-2) /hpf Urine WBC (0-6) /hpf Ur Epithelial Cells (0-5) /hpf Amorphous Sediment Urine Bacteria (NEG) Hyaline Casts /hpf Fine Granular Casts (0-2) /hpf Urine Other Laboratory Results - last 24 hr 04/15/17 04/15/17 04/15/17 07:30 07:30 07:30 WBC 8.0 RBC 5.80 Hgb 12.1 Hct 37.1 MCV 64.0 L MCH 20.9 L MCHC 32.6 RDW 15.6 H Plt Count 166 MPV 9.4 Gran % 76.9 H Lymph % (Auto) 9.1 L [place] % (Auto) 13.1 H Eos % (Auto) 0.7 L Baso % (Auto) 0.2 Gran # 6.17 Lymph # 0.7 L [place] # 1.1 H Eos # 0.1 Baso # 0.02 PT 15.7 H INR 1.42 H Sodium 140 Potassium 3.7 Chloride 104 Carbon Dioxide 25 Anion Gap 15 BUN 17 Creatinine 0.7 Est GFR ( Amer) > 60 Est GFR (Non-Af Amer) > 60 Random Glucose 154 H Calcium 9.3 Total Bilirubin 1.4 H AST 34 ALT 24 Alkaline Phosphatase 71 Total Protein 7.5 Albumin 4.0 Globulin 3.5 Albumin/Globulin Ratio 1.1 Urine Color Urine Appearance Urine pH Ur Specific [place] Urine Protein Urine Glucose (UA) Urine Ketones Urine Blood Urine Nitrate Urine Bilirubin Urine Urobilinogen Ur Leukocyte Esterase Urine RBC Urine WBC Ur Epithelial Cells Amorphous Sediment Urine Bacteria Hyaline Casts Fine Granular Casts Urine Other 04/15/17 04/15/17 04/16/17 08:35 12:00 06:00 WBC 6.8 RBC 4.72 Hgb 9.9 L D Hct 30.6 L MCV 64.8 L MCH 21.0 L MCHC 32.4 RDW 15.4 H Plt Count 152 MPV 10.0 Gran % 66.2 Lymph % (Auto) 11.6 L [place] % (Auto) 21.0 H Eos % (Auto) 0.9 L Baso % (Auto) 0.3 Gran # 4.50 Lymph # 0.8 L [place] # 1.4 H Eos # 0.1 Baso # 0.02 PT 15.4 H INR 1.39 H Sodium Potassium Chloride Carbon Dioxide Anion Gap BUN Creatinine Est GFR ( Amer) Est GFR (Non-Af Amer) Random Glucose Calcium Total Bilirubin AST ALT Alkaline Phosphatase Total Protein Albumin Globulin Albumin/Globulin Ratio Urine Color Yellow Urine Appearance Clear Urine pH 6.0 Ur Specific [place] >= 1.030 Urine Protein 30 H Urine Glucose (UA) Negative Urine Ketones Negative Urine Blood Large H Urine Nitrate Negative Urine Bilirubin Small H Urine Urobilinogen 1.0 H Ur Leukocyte Esterase Small H Urine RBC Tntc Urine WBC 10 - 15 Ur Epithelial Cells 4 - 5 Amorphous Sediment Few Urine Bacteria Many Hyaline Casts 0 - 2 Fine Granular Casts 0 - 2 Urine Other Uyeast 04/16/17 04/16/17 06:00 06:00 WBC RBC Hgb Hct MCV MCH MCHC RDW Plt Count MPV Gran % Lymph % (Auto) [place] % (Auto) Eos % (Auto) Baso % (Auto) Gran # Lymph # [place] # Eos # Baso # PT 14.3 H INR 1.29 H Sodium 142 Potassium 3.4 L Chloride 108 H Carbon Dioxide 26 Anion Gap 12 BUN 15 Creatinine 0.6 L Est GFR ( Amer) > 60 Est GFR (Non-Af Amer) > 60 Random Glucose 118 H Calcium 8.3 L Total Bilirubin 1.0 AST 36 ALT 27 Alkaline Phosphatase 54 Total Protein 6.1 Albumin 3.1 Globulin 3.1 Albumin/Globulin Ratio 1.0 L Urine Color Urine Appearance Urine pH Ur Specific [place] Urine Protein Urine Glucose (UA) Urine Ketones Urine Blood Urine Nitrate Urine Bilirubin Urine Urobilinogen Ur Leukocyte Esterase Urine RBC Urine WBC Ur Epithelial Cells Amorphous Sediment Urine Bacteria Hyaline Casts Fine Granular Casts Urine Other Critical Care Progress Note - Nutrition Nutrition: Nutrition Category Date Time Status Heart Healthy Diet [DIET] Diets 04/15/17 Dinner Ordered Assessment/Plan - Assessment and Plan (Free Text) Plan: 87 F with a PMH of Afib, CHF, HTN, Pulm HTN, HLD, iron deficiency anemia, and osteoarthritis presents with L hip fracture s/p L hip hemiarthroplasty POD#1 Neuro: -Maintain Normothermia, AAOx3, answers questions appropriately Pulm: - Maintain Sa02 > 90% - Head of bed elevated at 30 degrees - f/u pulm recommendations - Continue home tildalafil and revatio for pulm htn - Incentive Spirometer Cardio: - Cardio Consult, Dr. Johnson, help appreciated - Continue Lasix 40 Po, losartan, cardizem, sotalol - Lovenox - Echo reviewed showing EF of 50% and mod to severe pulm HTN and TR GI: - GI ppx Renal: - replete electrolytes as needed ID: - Cont Rocephin for UTI Endo: - Maintain euglycemia 140-180 EXT: - s/p hip arthroplasty POD#1 - Orthopedic recommendations as per Dr. Castañeda - Abduction pillow - Pain control - OOB to chair - PT/OT eval - Lovenox <Jama Segura - Last Filed: 04/16/17 17:23> CCU Objective - Vital Signs / Intake & Output Intake and Output (Last 8hrs): Intake & Output 04/16/17 04/16/17 04/16/17 06:59 14:59 22:59 Intake Total 910 Output Total 200 Balance 710 Weight 140 lb Intake: IV 750 Right Antecubital 750 Oral 160 Output: Urine 200 Urethral (Law) 200 Other: # Bowel Movements 0 - Medications Active Medications: Active Medications Generic Name Dose Route Start Last Admin Trade Name Freq PRN Reason Stop Dose Admin Cefpodoxime Proxetil 200 mg 04/17/17 10:00 Vantin PO Q12 JENIFER Protocol Diltiazem HCl 240 mg 04/14/17 10:00 04/16/17 09:47 Cardizem Cd PO 240 mg DAILY JENIFER Administration Docusate Sodium 100 mg 04/14/17 10:00 04/16/17 09:05 Colace PO 100 mg DAILY JENIFER Administration Enoxaparin Sodium 30 mg 04/16/17 10:45 04/16/17 11:00 Lovenox SC 30 mg Q12H JENIFER Administration Protocol Fenofibrate 48 mg 04/14/17 10:00 04/16/17 09:08 Tricor PO 48 mg DAILY [facility] Administration Ferrous Sulfate 300 mg 04/13/17 18:00 04/16/17 15:26 Feosol Liq PO Not Given TID [facility] Furosemide 40 mg 04/14/17 10:00 04/16/17 09:06 Lasix PO 40 mg DAILY JENIFER Administration Home Med 0 unit 04/14/17 10:55 04/16/17 09:47 Home Med PO 1 unit DAILY JENIFER Administration Sodium Chloride 1,000 mls @ 50 mls/hr 04/15/17 09:00 04/15/17 09:36 Sodium Chloride 0.9% IV 50 mls/hr .Q20H JENIFER Administration Vasopressin 20 units/ Sodium 101 mls @ 90.9 mls/hr 04/15/17 15:45 Chloride IV .Q1H7M [facility] Protocol 0.3 U/MIN Losartan Potassium 100 mg 04/14/17 10:00 04/16/17 09:06 Cozaar PO 100 mg DAILY [facility] Administration Magnesium Oxide 400 mg 04/14/17 10:00 04/16/17 09:07 Mag-Ox PO 400 mg DAILY [facility] Administration Morphine Sulfate 2 mg 04/13/17 16:22 04/16/17 01:30 Morphine IVP 2 mg Q4H PRN Administration Pain, severe (8-10) Ondansetron HCl 4 mg 04/15/17 20:34 Zofran Inj IVP ONCE PRN Nausea/Vomiting Oxycodone/Acetaminophen 1 tab 04/15/17 17:13 04/16/17 09:07 Percocet 5/325 Mg Tab PO 04/18/17 17:14 1 tab Q4H PRN Administration Pain, moderate (4-7) Pantoprazole Sodium 40 mg 04/14/17 10:00 04/16/17 09:07 Protonix Ec Tab PO 40 mg DAILY [facility] Administration Sotalol HCl 80 mg 04/13/17 18:00 04/16/17 09:05 Betapace PO 80 mg BID [facility] Administration Warfarin Sodium 3 mg 04/16/17 18:00 Coumadin PO 1800 [facility] Protocol - Patient Studies Lab Studies: Microbiology Studies 04/14/17 07:25 Urine Culture - Final Urine,Law Escherichia Coli 04/15/17 08:35 Gram Stain - Final Sputum Sputum Culture - Final Lab Studies 04/16/17 04/16/17 04/16/17 Range/Units 06:00 06:00 06:00 WBC 6.8 (4.5-11.0) 10^3/ul RBC 4.72 (3.5-6.1) 10^6/uL Hgb 9.9 L D (12.0-16.0) g/dL Hct 30.6 L (36.0-48.0) % MCV 64.8 L (80.0-105.0) fl MCH 21.0 L (25.0-35.0) pg MCHC 32.4 (31.0-37.0) g/dl RDW 15.4 H (11.5-14.5) % Plt Count 152 (120.0-450.0) 10^3/uL MPV 10.0 (7.0-11.0) fl Gran % 66.2 (50.0-68.0) % Lymph % (Auto) 11.6 L (22.0-35.0) % [place] % (Auto) 21.0 H (1.0-6.0) % Eos % (Auto) 0.9 L (1.5-5.0) % Baso % (Auto) 0.3 (0.0-3.0) % Gran # 4.50 (1.4-6.5) Lymph # 0.8 L (1.2-3.4) [place] # 1.4 H (0.1-0.6) Eos # 0.1 (0.0-0.7) Baso # 0.02 (0.0-2.0) K/mm3 PT 14.3 H (9.4-12.5) SECONDS INR 1.29 H (0.93-1.08) Sodium 142 (132-148) mmol/L Potassium 3.4 L (3.6-5.0) mmol/L Chloride 108 H (98-107) mmol/L Carbon Dioxide 26 (21-33) mmol/L Anion Gap 12 (10-20) BUN 15 (7-21) mg/dL Creatinine 0.6 L (0.7-1.2) mg/dl Est GFR ( Amer) > 60 Est GFR (Non-Af Amer) > 60 Random Glucose 118 H (70-110) mg/dL Calcium 8.3 L (8.4-10.5) mg/dL Total Bilirubin 1.0 (0.2-1.3) mg/dL AST 36 (14-36) U/L ALT 27 (7-56) U/L Alkaline Phosphatase 54 (38-126) U/L Total Protein 6.1 (5.8-8.3) g/dL Albumin 3.1 (3.0-4.8) g/dL Globulin 3.1 gm/dL Albumin/Globulin Ratio 1.0 L (1.1-1.8) Laboratory Results - last 24 hr 04/16/17 04/16/17 04/16/17 06:00 06:00 06:00 WBC 6.8 RBC 4.72 Hgb 9.9 L D Hct 30.6 L MCV 64.8 L MCH 21.0 L MCHC 32.4 RDW 15.4 H Plt Count 152 MPV 10.0 Gran % 66.2 Lymph % (Auto) 11.6 L [place] % (Auto) 21.0 H Eos % (Auto) 0.9 L Baso % (Auto) 0.3 Gran # 4.50 Lymph # 0.8 L [place] # 1.4 H Eos # 0.1 Baso # 0.02 PT 14.3 H INR 1.29 H Sodium 142 Potassium 3.4 L Chloride 108 H Carbon Dioxide 26 Anion Gap 12 BUN 15 Creatinine 0.6 L Est GFR ( Amer) > 60 Est GFR (Non-Af Amer) > 60 Random Glucose 118 H Calcium 8.3 L Total Bilirubin 1.0 AST 36 ALT 27 Alkaline Phosphatase 54 Total Protein 6.1 Albumin 3.1 Globulin 3.1 Albumin/Globulin Ratio 1.0 L Critical Care Progress Note - Nutrition Nutrition: Nutrition Category Date Time Status Heart Healthy Diet [DIET] Diets 04/15/17 Dinner Ordered Attending/Attestation - Attestation I have personally seen and examined this patient.: Yes I have fully participated in the care of the patient.: Yes I have reviewed all pertinent clinical information: Yes Notes (Text): 04/16/17 17:16 87 yo female s/p ORIF. Hemodynamically and respiratory ray relatively stable. No signs of bleeding, alert and oriented x 3. Slight drop in Hb most likely due to equlibrating of intra/intervascular volume. Would proceed with pain control, pulmonary toilet, IS, chest PT, early mobiliation once cleared by ortho, OOB to chair, PT. Patient has afib and was on TAC, but presently risk of bleeding overweigh the risk of stroke due to afib and lovenox will be proceeded with at the 30 mg sc q 12 h dose cleared by ortho service and as per discussion between ortho, PMD and CCM services. GI prophyalxis. ok to downgrade to tele ccm time 40 min
--- NOTE | 2017-04-16 07:47 | OP ---
PROCEDURE DATE: ADDENDUM The patient was brought to the recovery room extubated and in stable condition. Wade Castañeda MD
--- NOTE | 2017-04-16 07:47 | PN ---
DATE: 04/16/2017 PULMONARY PROGRESS NOTE SUBJECTIVE: The patient appears comfortable this morning. She is not short of breath at rest. PHYSICAL EXAMINATION: VITAL SIGNS: Temperature is 98.0, pulse on the monitor is 94, respirations are 16, and blood pressure last recorded 101/67. Oxygen saturation on nasal cannula is 97%. HEENT: Normocephalic and atraumatic. NECK: No JVD. CARDIOVASCULAR: Systolic ejection murmur at the lower left sternal border. No S3, gallop. LUNGS: Clear bilaterally. EXTREMITIES: The patient is status post left hip surgery. There is mild edema noted in both lower extremities. There is no clubbing or cyanosis. The calves are nontender to palpation. GASTROINTESTINAL: Abdomen is soft, nontender and nondistended. Bowel sounds are positive. SKIN: No acute rash. NEUROLOGIC: Exam is limited at the present time. IMPRESSION 1. Left hip fracture, status post fall at home. 2. Pulmonary hypertension. 3. Chronic atrial fibrillation. 4. Systemic hypertension. PLAN: The patient appears comfortable this morning. She is not short of breath at rest. I did discuss the case with the night nurse at length. The night nurse stated that the patient has done very well postoperatively. On physical exam, her lungs remain clear. Oxygen saturation on nasal cannula is 97%. I will continue with the Revatio-- for her pulmonary hypertension. Inputs by Cardiology and Orthopedics are also noted. Incentive spirometry is ordered. I did speak with the patient about using the spirometer as much as possible. I will discuss the above with the entire ICU team in the next few moments. I will also discuss the above with Dr. oKhler later this morning. Abdias Yates MD MTDKrzysztof
--- NOTE | 2017-04-16 08:56 | RAD ---
PROCEDURE: Left Hip X-ray Radiographs. HISTORY: Status post bipolar hip replacement, left. COMPARISON: None. FINDINGS: BONES: Components of left bipolar hip prosthesis in satisfactory position and alignment. JOINTS: Moderate degenerative changes right hip. SOFT TISSUES: Normal. OTHER FINDINGS: None. IMPRESSION: Satisfactory postoperative status.
[2017-04-16] MEDS: Ferrous Sulfate 300 mg/5 mL Liq UD PO SCH ×2 (09:06→15:26)
[2017-04-16] MEDS: Magnesium Oxide 400 mg Tab UD PO SCH (09:07)
[2017-04-16] MEDS: Pantoprazole 40 mg EC Tab PO SCH (09:07)
[2017-04-16] MEDS: TADALAFIL 20MG PO SCH (09:47)
[2017-04-16] MEDS: diltiaZEM 240 mg/24 Hours CD Cap PO SCH (09:47)
[2017-04-16] MEDS: cefTRIAXone 1 gm 1 GM/100 ML BAG IVPB SCH (09:52)
--- NOTE | 2017-04-16 09:56 | CP.PCM.PN ---
Subjective - Date & Time of Evaluation Date of Evaluation: 04/16/17 Time of Evaluation: 07:00 - Subjective Subjective: PGY [address] ALBERT/DR. TALLEY Patient seen and evaluated at bedside. No acute events overnight reported. Patient complaining of left hip pain s/p hip surgery POD#1. Patient denies chest pain, shob, abdominal pain, n/v/f/c. Objective - Vital Signs/Intake and Output Vital Signs (last 24 hours): Temp Pulse Resp BP Pulse Ox 98 F 107 H 14 133/92 H 96 04/16/17 04:00 04/16/17 09:47 04/16/17 06:20 04/16/17 09:47 04/16/17 06:20 Intake and Output: 04/16/17 04/16/17 06:59 18:59 Intake Total 910 Output Total 200 Balance 710 - Medications Medications: Current Medications Diltiazem HCl (Cardizem Cd) 240 mg PO DAILY [facility] Last Admin: 04/16/17 09:47 Dose: 240 mg Docusate Sodium (Colace) 100 mg PO DAILY [facility] Last Admin: 04/16/17 09:05 Dose: 100 mg Enoxaparin Sodium (Lovenox) 40 mg SC Q24H [facility] PRN Reason: Protocol Fenofibrate (Tricor) 48 mg PO DAILY [facility] Last Admin: 04/16/17 09:08 Dose: 48 mg Ferrous Sulfate (Feosol Liq) 300 mg PO TID [facility] Last Admin: 04/16/17 09:06 Dose: 300 mg Furosemide (Lasix) 40 mg PO DAILY [facility] Last Admin: 04/16/17 09:06 Dose: 40 mg Home Med (Home Med) 0 unit PO DAILY [facility] Last Admin: 04/16/17 09:47 Dose: 1 unit Ceftriaxone Sodium (Rocephin 1 Gram Ivpb (D5w)) 1 gm in 100 mls @ 100 mls/hr IVPB Q24H [facility] PRN Reason: Protocol Last Admin: 04/16/17 09:52 Dose: 100 mls/hr Sodium Chloride (Sodium Chloride 0.9%) 1,000 mls @ 50 mls/hr IV .Q20H [facility] Last Admin: 04/15/17 09:36 Dose: 50 mls/hr Vasopressin 20 units/ Sodium (Chloride) 101 mls @ 90.9 mls/hr IV .Q1H7M [facility]; 0.3 U/MIN PRN Reason: Protocol Cefazolin Sodium 2 gm/ Sodium (Chloride) 100 mls @ 100 mls/hr IVPB Q8H [facility] PRN Reason: Protocol Stop: 04/16/17 10:59 Last Admin: 04/16/17 09:53 Dose: 100 mls/hr Losartan Potassium (Cozaar) 100 mg PO DAILY [facility] Last Admin: 04/16/17 09:06 Dose: 100 mg Magnesium Oxide (Mag-Ox) 400 mg PO DAILY [facility] Last Admin: 04/16/17 09:07 Dose: 400 mg Morphine Sulfate (Morphine) 2 mg IVP Q4H PRN PRN Reason: Pain, severe (8-10) Last Admin: 04/16/17 01:30 Dose: 2 mg Ondansetron HCl (Zofran Inj) 4 mg IVP ONCE PRN PRN Reason: Nausea/Vomiting Oxycodone/Acetaminophen (Percocet 5/325 Mg Tab) 1 tab PO Q4H PRN PRN Reason: Pain, moderate (4-7) Stop: 04/18/17 17:14 Last Admin: 04/16/17 09:07 Dose: 1 tab Pantoprazole Sodium (Protonix Ec Tab) 40 mg PO DAILY [facility] Last Admin: 04/16/17 09:07 Dose: 40 mg Sotalol HCl (Betapace) 80 mg PO BID [facility] Last Admin: 04/16/17 09:05 Dose: 80 mg - Labs Labs: 04/16/17 06:00 04/16/17 06:00 PT 14.3 SECONDS (9.4-12.5) H 04/16/17 06:00 INR 1.29 (0.93-1.08) H 04/16/17 06:00 APTT 45.8 Seconds (25.1-36.5) H 04/13/17 15:15 - Head Exam Head Exam: ATRAUMATIC, NORMAL INSPECTION, NORMOCEPHALIC - Eye Exam Eye Exam: EOMI, PERRL - ENT Exam ENT Exam: Mucous Membranes Moist - Respiratory Exam Respiratory Exam: Clear to Ausculation Bilateral, NORMAL BREATHING PATTERN - Cardiovascular Exam Cardiovascular Exam: Irregular Rhythm. absent: Murmur - GI/Abdominal Exam GI & Abdominal Exam: Soft, Normal Bowel Sounds - Extremities Exam Extremities Exam: absent: Calf Tenderness, Pedal Edema Additional comments: Left hip pain associated with palpation, surgical site c/d/i - Neurological Exam Neurological Exam: Alert, Awake, Oriented x3 - Psychiatric Exam Psychiatric exam: Normal Affect, Normal Mood - Skin Skin Exam: Dry, Normal Color. absent: Rash Assessment and Plan - Assessment and Plan (Free Text) Assessment: 87 y/o female with a pmhx of Afib, CHF, HTN, Pulm HTN, HLD, iron deficiency anemia, osteoarthritis, hypokalemia presents to ED with L hip pain after a mechanical fall. Patient is POD#1 from left hip arthroplasty. Currently being monitored in ICU secondary to significant comorbidities pulm htn, afib, hx of heart disease. Plan: 1. Left subcapital hip fracture - Hip xray showing displaced subcapital hip fracture on left side, pelvis intact - Orthopedic consulted and following - POD#1 from Left hip arthroplasty - post op surgical recs per ortho - Incentive spirometery - Pain control - PT/OT eval and tx s/p surgery - Patient currently being monitored in ICU due to significant comorbidities 2. Atrial fibrillation, Chronic, AC with coumadin - Coumadin start tonight to bridge - On lovenox 30mg BID - Cardio Consult with Dr. Johnson, f/u recs 3. CHF - Last known EF 43% in 11/2015 - Continue Lasix, losartan, cardizem, sotalol - Cardio following 4. UTI - UA positive for leuk est, nitrate - Positive for e.coli - Continue rocephin Day 3 5. Pulmonary HTN - Continue home tildalafil - Incentive spirometer - Dr. Yates consulted, following - Cont revatio for pulm htn 6. HLD - cont home med DVT ppx: Lovenox GI ppx: Protonix Case and plan discussed and reviewed with attending
[2017-04-16] MEDS ORDERED: Enoxaparin 40 mg Syringe SC SCH ×3 (10:33→19:00)
[2017-04-16] MEDS: Enoxaparin 30 mg Syringe SC SCH ×2 (11:00→21:57)
--- NOTE | 2017-04-16 12:10 | CP.PCM.PN ---
Subjective - Date & Time of Evaluation Date of Evaluation: 04/16/17 Time of Evaluation: 12:08 - Subjective Subjective: Pt awake, alert. Adequate pain control. Afebrile, VSS LLE: NVI distally dressing clean and intact abduction pillow in place Hg 9.9 xrays: implant in good position POD#1 Lovenox, coumadin PT WBAT abduction pillow while in bed Objective - Vital Signs/Intake and Output Vital Signs (last 24 hours): Temp Pulse Resp BP Pulse Ox 98 F 107 H 14 133/92 H 96 04/16/17 04:00 04/16/17 09:47 04/16/17 06:20 04/16/17 09:47 04/16/17 06:20 Intake and Output: 04/16/17 04/16/17 06:59 18:59 Intake Total 910 Output Total 200 Balance 710 - Medications Medications: Current Medications Diltiazem HCl (Cardizem Cd) 240 mg PO DAILY [facility] Last Admin: 04/16/17 09:47 Dose: 240 mg Docusate Sodium (Colace) 100 mg PO DAILY [facility] Last Admin: 04/16/17 09:05 Dose: 100 mg Enoxaparin Sodium (Lovenox) 30 mg SC Q12H [facility] PRN Reason: Protocol Fenofibrate (Tricor) 48 mg PO DAILY [facility] Last Admin: 04/16/17 09:08 Dose: 48 mg Ferrous Sulfate (Feosol Liq) 300 mg PO TID [facility] Last Admin: 04/16/17 09:06 Dose: 300 mg Furosemide (Lasix) 40 mg PO DAILY [facility] Last Admin: 04/16/17 09:06 Dose: 40 mg Home Med (Home Med) 0 unit PO DAILY [facility] Last Admin: 04/16/17 09:47 Dose: 1 unit Ceftriaxone Sodium (Rocephin 1 Gram Ivpb (D5w)) 1 gm in 100 mls @ 100 mls/hr IVPB Q24H [facility] PRN Reason: Protocol Last Admin: 04/16/17 09:52 Dose: 100 mls/hr Sodium Chloride (Sodium Chloride 0.9%) 1,000 mls @ 50 mls/hr IV .Q20H [facility] Last Admin: 04/15/17 09:36 Dose: 50 mls/hr Vasopressin 20 units/ Sodium (Chloride) 101 mls @ 90.9 mls/hr IV .Q1H7M [facility]; 0.3 U/MIN PRN Reason: Protocol Losartan Potassium (Cozaar) 100 mg PO DAILY [facility] Last Admin: 04/16/17 09:06 Dose: 100 mg Magnesium Oxide (Mag-Ox) 400 mg PO DAILY [facility] Last Admin: 04/16/17 09:07 Dose: 400 mg Morphine Sulfate (Morphine) 2 mg IVP Q4H PRN PRN Reason: Pain, severe (8-10) Last Admin: 04/16/17 01:30 Dose: 2 mg Ondansetron HCl (Zofran Inj) 4 mg IVP ONCE PRN PRN Reason: Nausea/Vomiting Oxycodone/Acetaminophen (Percocet 5/325 Mg Tab) 1 tab PO Q4H PRN PRN Reason: Pain, moderate (4-7) Stop: 04/18/17 17:14 Last Admin: 04/16/17 09:07 Dose: 1 tab Pantoprazole Sodium (Protonix Ec Tab) 40 mg PO DAILY [facility] Last Admin: 04/16/17 09:07 Dose: 40 mg Sotalol HCl (Betapace) 80 mg PO BID [facility] Last Admin: 04/16/17 09:05 Dose: 80 mg Warfarin Sodium (Coumadin) 3 mg PO 1800 [facility] PRN Reason: Protocol - Labs Labs: 04/16/17 06:00 04/16/17 06:00 PT 14.3 SECONDS (9.4-12.5) H 04/16/17 06:00 INR 1.29 (0.93-1.08) H 04/16/17 06:00 APTT 45.8 Seconds (25.1-36.5) H 04/13/17 15:15
--- NOTE | 2017-04-16 14:36 | PN ---
DATE: 04/16/2017 SUBJECTIVE: The patient is extubated. She is comfortable. She is status post hip surgery. PHYSICAL EXAMINATION: VITAL SIGNS: Blood pressure 133/92, heart rate is atrial fibrillation at 107. NECK: Negative JVD. LUNGS: Without rales. HEART: S1, S2. EXTREMITIES: Without edema. LABORATORY DATA: Hemoglobin is 9.9. Chemistries, BUN and creatinine are unremarkable. IMPRESSION: 1. Status post hip fracture. 2. Chronic atrial fibrillation. 3. Anemia. 4. Pulmonary hypertension. PLAN: Given these findings, we should restart her Coumadin. In addition, the patient will be on full-dose Lovenox mg/kg. Toro Johnson MD
[2017-04-17 06:05] LABS: BASO # 0.02 K/mm3 (0.0-2.0); BASO % 0.2 % (0.0-3.0); EOS % 0.1 % (1.5-5.0); GRAN # 7.23 (1.4-6.5); GRAN % 75.4 % (50.0-68.0); HEMATOCRIT 29.9 % (36.0-48.0); LYMPH # 0.8 (1.2-3.4); LYMPH % 7.8 % (22.0-35.0); MEAN CELL VOLUME 64.2 fl (80.0-105.0); MEAN CORPUSCULAR HEMOGLOBIN 20.8 pg (25.0-35.0); MEAN CORPUSCULAR HGB CONC 32.4 g/dl (31.0-37.0); MONO # 1.6 (0.1-0.6); MONO % 16.5 % (1.0-6.0); RED CELL DISTRIBUTION WIDTH 15.3 % (11.5-14.5); WHITE BLOOD COUNT 9.6 10^3/ul (4.5-11.0)
[2017-04-17 06:22] LABS: ALKALINE PHOSPHATASE 58 U/L (38-126); ALT/SGPT 22 U/L (7-56); AST/SGOT 31 U/L (14-36); BILIRUBIN,TOTAL 1.1 mg/dL (0.2-1.3); BLOOD UREA NITROGEN 19 mg/dL (7-21); CALCIUM 8.6 mg/dL (8.4-10.5); CARBON DIOXIDE 27 mmol/L (21-33); CHLORIDE 105 mmol/L (98-107); GFR AFRICAN-AMERICAN > 60; GLUCOSE,RANDOM 134 mg/dL (70-110); POTASSIUM 4.1 mmol/L (3.6-5.0); SODIUM 139 mmol/L (132-148); TOTAL PROTEIN 6.1 g/dL (5.8-8.3)
--- NOTE | 2017-04-17 07:14 | CP.PCM.PN ---
Subjective - Date & Time of Evaluation Date of Evaluation: 04/17/17 Time of Evaluation: 07:10 - Subjective Subjective: Patient seen and examined at bedside. No acute overnight events or new complaints. Encouraged use of incentive spirometer. Today is POD#2. PT following. Objective - Vital Signs/Intake and Output Vital Signs (last 24 hours): Temp Pulse Resp BP Pulse Ox 98 F 97 H 20 103/56 L 97 04/17/17 05:59 04/17/17 05:59 04/17/17 00:01 04/17/17 05:59 04/17/17 05:59 Intake and Output: 04/17/17 04/17/17 06:59 18:59 Intake Total 550 Balance 550 - Medications Medications: Current Medications Cefpodoxime Proxetil (Vantin) 200 mg PO Q12 [facility] PRN Reason: Protocol Diltiazem HCl (Cardizem Cd) 240 mg PO DAILY [facility] Last Admin: 04/16/17 09:47 Dose: 240 mg Docusate Sodium (Colace) 100 mg PO DAILY [facility] Last Admin: 04/16/17 09:05 Dose: 100 mg Enoxaparin Sodium (Lovenox) 30 mg SC Q12H [facility] PRN Reason: Protocol Last Admin: 04/16/17 21:57 Dose: 30 mg Fenofibrate (Tricor) 48 mg PO DAILY [facility] Last Admin: 04/16/17 09:08 Dose: 48 mg Ferrous Sulfate (Feosol Liq) 300 mg PO TID [facility] Last Admin: 04/16/17 15:26 Dose: Not Given Furosemide (Lasix) 40 mg PO DAILY [facility] Last Admin: 04/16/17 09:06 Dose: 40 mg Home Med (Home Med) 0 unit PO DAILY [facility] Last Admin: 04/16/17 09:47 Dose: 1 unit Sodium Chloride (Sodium Chloride 0.9%) 1,000 mls @ 50 mls/hr IV .Q20H [facility] Last Admin: 04/15/17 09:36 Dose: 50 mls/hr Vasopressin 20 units/ Sodium (Chloride) 101 mls @ 90.9 mls/hr IV .Q1H7M [facility]; 0.3 U/MIN PRN Reason: Protocol Losartan Potassium (Cozaar) 100 mg PO DAILY [facility] Last Admin: 04/16/17 09:06 Dose: 100 mg Magnesium Oxide (Mag-Ox) 400 mg PO DAILY [facility] Last Admin: 04/16/17 09:07 Dose: 400 mg Morphine Sulfate (Morphine) 2 mg IVP Q4H PRN PRN Reason: Pain, severe (8-10) Last Admin: 04/16/17 21:57 Dose: 2 mg Ondansetron HCl (Zofran Inj) 4 mg IVP ONCE PRN PRN Reason: Nausea/Vomiting Oxycodone/Acetaminophen (Percocet 5/325 Mg Tab) 1 tab PO Q4H PRN PRN Reason: Pain, moderate (4-7) Stop: 04/18/17 17:14 Last Admin: 04/16/17 09:07 Dose: 1 tab Pantoprazole Sodium (Protonix Ec Tab) 40 mg PO DAILY [facility] Last Admin: 04/16/17 09:07 Dose: 40 mg Sotalol HCl (Betapace) 80 mg PO BID [facility] Last Admin: 04/16/17 17:48 Dose: 80 mg Warfarin Sodium (Coumadin) 3 mg PO 1800 [facility] PRN Reason: Protocol Last Admin: 04/16/17 17:49 Dose: 3 mg - Labs Labs: 04/17/17 05:00 04/17/17 05:00 PT 14.3 SECONDS (9.4-12.5) H 04/16/17 06:00 INR 1.29 (0.93-1.08) H 04/16/17 06:00 APTT 45.8 Seconds (25.1-36.5) H 04/13/17 15:15 - Constitutional Appears: No Acute Distress - Head Exam Head Exam: ATRAUMATIC, NORMAL INSPECTION, NORMOCEPHALIC - Eye Exam Eye Exam: EOMI, PERRL - ENT Exam ENT Exam: Mucous Membranes Moist - Respiratory Exam Respiratory Exam: Clear to Ausculation Bilateral. absent: Rales, Rhonchi, Wheezes - Cardiovascular Exam Cardiovascular Exam: Irregular Rhythm, +S1, +S2. absent: Gallop, JVD, Rubs, Murmur - GI/Abdominal Exam GI & Abdominal Exam: Distended, Soft. absent: Firm, Guarding, Rigid, Tenderness , Rebound - Extremities Exam Additional comments: left hip dressing clean, dry and intact - Neurological Exam Neurological Exam: Alert, Awake, CN II-XII Intact, Oriented x3 - Psychiatric Exam Psychiatric exam: Normal Affect, Normal Mood - Skin Skin Exam: Dry, Intact, Normal Color, Warm Assessment and Plan - Assessment and Plan (Free Text) Plan: 87 y/o female with a pmhx of Afib, CHF, HTN, Pulm HTN, HLD, iron deficiency anemia, osteoarthritis, hypokalemia presents to ED with L hip pain after a mechanical fall. Patient is POD#2 from left hip arthroplasty. 1. Left subcapital hip fracture - Hip xray showing displaced subcapital hip fracture on left side, pelvis intact - Orthopedic consulted and following - POD#2 from Left hip arthroplasty - post op surgical recs per ortho - Incentive spirometery - Pain control - PT/OT eval and tx s/p surgery 2. Atrial fibrillation, Chronic - Coumadin start tonight to bridge - On lovenox 30mg BID - Cardio Consult with Dr. Johnson, f/u recs 3. CHF - Last known EF 43% in 11/2015 - Continue Lasix, losartan, cardizem, sotalol 4. UTI - UA positive for leuk est, nitrate - Positive for e.coli - Continue rocephin Day 3 5. Pulmonary HTN - Continue home tildalafil - Incentive spirometer - Dr. Yates consulted, following - Cont revatio for pulm htn 6. HLD - cont home med DVT ppx: Lovenox GI ppx: Protonix Case and plan discussed and reviewed with attending
[2017-04-17] MEDS: Cefpodoxime (Vantin) 200 mg Tab PO SCH ×2 (09:30→22:10)
[2017-04-17] MEDS: diltiaZEM 240 mg/24 Hours CD Cap PO SCH (09:30)
[2017-04-17] MEDS: Magnesium Oxide 400 mg Tab UD PO SCH (09:30)
[2017-04-17] MEDS: Pantoprazole 40 mg EC Tab PO SCH (09:34)
[2017-04-17] MEDS: Enoxaparin 30 mg Syringe SC SCH ×2 (09:46→22:11)
--- NOTE | 2017-04-17 09:55 | PN ---
PULMONARY PROGRESS NOTE DATE: 04/17/2017 SUBJECTIVE: The patient was seen and examined at bedside. She is not in respiratory distress. She is anticoagulated with warfarin and she received a Lovenox injection last night. She is on Vantin for antibiotic. PHYSICAL EXAMINATION VITAL SIGNS: As follows: Temperature is 98, pulse is 97, her pulse oximetry is 97% on nasal cannula, and blood pressure is 103/56. HEENT: Head, eyes, ears, nose and throat are within normal limits. NECK: Supple with no jugular vein distention. CHEST: Symmetrical. HEART: S1 and S2. No S3. Irregular. LUNGS: Few scattered rhonchi more at the bases. No wheezing. GASTROINTESTINAL: Soft and nontender. No organomegaly. EXTREMITIES: The patient is status post hip surgery. Mild edema. No cyanosis. SKIN: No acute skin rash. NEUROLOGIC: Exam is limited at the present time. LABORATORY DATA: I reviewed today's blood work. Sodium of 139, potassium of 4.1, chloride of 105, BUN of 19 and creatinine of 0.9. WBC is normal at 9.6 and hemoglobin reduced to 9.7. ASSESSMENT: 1. Pulmonary hypertension. 2. Left hip fracture status post fall. 3. Chronic atrial fibrillation. PLAN: The patient appears comfortable. She is not short of breath at rest. Oxygen saturation is acceptable that is on nasal cannula. She was on Adcirca at home for pulmonary hypertension. I will discuss this with Dr. Yates, additional assessment of current pulmonary hypertension status is in order. Shelton Tse MD
[2017-04-17] MEDS: TADALAFIL 20MG PO SCH (10:48)
[2017-04-17] MEDS: Ferrous Sulfate 300 mg/5 mL Liq UD PO SCH (10:51)
[2017-04-17] MEDS: Sodium Chloride 0.9% 1,000 ML IV SCH (14:16)
[2017-04-17] MEDS: POLYETHYLENE GLYCOL 3350 17 GM/Dose PACKET PO PRN (14:17)
[2017-04-18 06:54] LABS: BASO # 0.02 K/mm3 (0.0-2.0); BASO % 0.3 % (0.0-3.0); EOS # 0.1 (0.0-0.7); EOS % 1.4 % (1.5-5.0); GRAN # 5.87 (1.4-6.5); GRAN % 75.5 % (50.0-68.0); LYMPH # 0.7 (1.2-3.4); MEAN CELL VOLUME 64.2 fl (80.0-105.0); MEAN CORPUSCULAR HEMOGLOBIN 20.4 pg (25.0-35.0); MEAN CORPUSCULAR HGB CONC 31.8 g/dl (31.0-37.0); MEAN PLATELET VOLUME 10.4 fl (7.0-11.0); MONO # 1.1 (0.1-0.6); MONO % 13.8 % (1.0-6.0); WHITE BLOOD COUNT 7.8 10^3/ul (4.5-11.0)
[2017-04-18 07:15] LABS: ALKALINE PHOSPHATASE 57 U/L (38-126); ALT/SGPT 20 U/L (7-56); AST/SGOT 30 U/L (14-36); BILIRUBIN,TOTAL 0.7 mg/dL (0.2-1.3); BLOOD UREA NITROGEN 22 mg/dL (7-21); CALCIUM 8.6 mg/dL (8.4-10.5); CARBON DIOXIDE 27 mmol/L (21-33); CHLORIDE 105 mmol/L (98-107); GFR AFRICAN-AMERICAN > 60; GLUCOSE,RANDOM 115 mg/dL (70-110); SODIUM 141 mmol/L (132-148); TOTAL PROTEIN 5.9 g/dL (5.8-8.3)
--- NOTE | 2017-04-18 07:38 | CP.PCM.PN ---
Subjective - Date & Time of Evaluation Date of Evaluation: 04/18/17 Time of Evaluation: 07:00 - Subjective Subjective: Medicine progress note: Pt seen and examined at bedside. No acute events overnight. Pt States that she is doing well. Sat in the chair for few hour yesterday. No pain at this time. 12 Point ROS performed and negative other than stated above. Objective - Vital Signs/Intake and Output Vital Signs (last 24 hours): Temp Pulse Resp BP Pulse Ox 98.5 F 102 H 20 114/79 98 04/18/17 06:00 04/18/17 06:00 04/18/17 06:00 04/18/17 06:00 04/18/17 06:00 Intake and Output: 04/18/17 04/18/17 06:59 18:59 Intake Total 2880 Output Total 900 Balance 1979 - Medications Medications: Current Medications Cefpodoxime Proxetil (Vantin) 200 mg PO Q12 [facility] PRN Reason: Protocol Last Admin: 04/17/17 22:10 Dose: 200 mg Diltiazem HCl (Cardizem Cd) 240 mg PO DAILY [facility] Last Admin: 04/17/17 09:30 Dose: 240 mg Docusate Sodium (Colace) 100 mg PO DAILY [facility] Last Admin: 04/17/17 09:35 Dose: 100 mg Enoxaparin Sodium (Lovenox) 30 mg SC Q12H [facility] PRN Reason: Protocol Last Admin: 04/17/17 22:11 Dose: 30 mg Fenofibrate (Tricor) 48 mg PO DAILY [facility] Last Admin: 04/17/17 09:34 Dose: 48 mg Ferrous Sulfate (Feosol) 324 mg PO TID [facility] Last Admin: 04/17/17 17:56 Dose: 324 mg Furosemide (Lasix) 40 mg PO DAILY [facility] Last Admin: 04/17/17 09:30 Dose: 40 mg Home Med (Home Med) 0 unit PO DAILY [facility] Last Admin: 04/17/17 10:48 Dose: 2 unit Sodium Chloride (Sodium Chloride 0.9%) 1,000 mls @ 50 mls/hr IV .Q20H [facility] Last Admin: 04/17/17 14:16 Dose: 50 mls/hr Vasopressin 20 units/ Sodium (Chloride) 101 mls @ 90.9 mls/hr IV .Q1H7M [facility]; 0.3 U/MIN PRN Reason: Protocol Losartan Potassium (Cozaar) 100 mg PO DAILY [facility] Last Admin: 04/17/17 09:30 Dose: 100 mg Magnesium Oxide (Mag-Ox) 400 mg PO DAILY [facility] Last Admin: 04/17/17 09:30 Dose: 400 mg Morphine Sulfate (Morphine) 2 mg IVP Q4H PRN PRN Reason: Pain, severe (8-10) Last Admin: 04/16/17 21:57 Dose: 2 mg Ondansetron HCl (Zofran Inj) 4 mg IVP ONCE PRN PRN Reason: Nausea/Vomiting Oxycodone/Acetaminophen (Percocet 5/325 Mg Tab) 1 tab PO Q4H PRN PRN Reason: Pain, moderate (4-7) Stop: 04/18/17 17:14 Last Admin: 04/16/17 09:07 Dose: 1 tab Pantoprazole Sodium (Protonix Ec Tab) 40 mg PO DAILY [facility] Last Admin: 04/17/17 09:34 Dose: 40 mg Polyethylene Glycol (Miralax) 17 gm PO TID PRN PRN Reason: Constipation Last Admin: 04/17/17 14:17 Dose: 17 gm Sotalol HCl (Betapace) 80 mg PO BID [facility] Last Admin: 04/17/17 17:56 Dose: 80 mg Warfarin Sodium (Coumadin) 3 mg PO 1800 [facility] PRN Reason: Protocol Last Admin: 04/17/17 17:56 Dose: 3 mg - Labs Labs: 04/18/17 06:00 04/18/17 06:00 PT 14.3 SECONDS (9.4-12.5) H 04/16/17 06:00 INR 1.29 (0.93-1.08) H 04/16/17 06:00 APTT 45.8 Seconds (25.1-36.5) H 04/13/17 15:15 - Constitutional Appears: No Acute Distress - Head Exam Head Exam: ATRAUMATIC, NORMOCEPHALIC - Eye Exam Eye Exam: EOMI, PERRL - ENT Exam ENT Exam: Mucous Membranes Moist - Respiratory Exam Respiratory Exam: Clear to Ausculation Bilateral. absent: Rhonchi, Wheezes - Cardiovascular Exam Cardiovascular Exam: RRR, +S1, +S2 - GI/Abdominal Exam GI & Abdominal Exam: Soft. absent: Tenderness - Extremities Exam Extremities Exam: absent: Calf Tenderness, Pedal Edema Additional comments: Sensation and pulses intact - Neurological Exam Neurological Exam: Alert, Oriented x3 - Psychiatric Exam Psychiatric exam: Normal Affect, Normal Mood - Skin Skin Exam: Dry, Intact, Warm Assessment and Plan - Assessment and Plan (Free Text) Assessment: 87 y/o female with a pmhx of Afib, CHF, HTN, Pulm HTN, HLD, iron deficiency anemia, osteoarthritis, hypokalemia presents to ED with L hip pain after a mechanical fall. Patient is POD#3 from left hip arthroplasty. 1. Left subcapital hip fracture s/p L hip arthroplasty POD 3 - Hip xray showing displaced subcapital hip fracture on left side, pelvis intact - Orthopedic consulted and following - POD#3 from Left hip arthroplasty - post op surgical recs per ortho - Incentive spirometery - Pain control - Physical therapy eval - Abx cont Vantin as per orth surgery 2. Atrial fibrillation, Chronic - F/u INR today - Coumadin restarted - On lovenox 30mg BID until therapeutic INR - Cardio Consult with Dr. Johnson, f/u recs 3. CHF - Last known EF 43% in 11/2015 - Continue Lasix, losartan, cardizem, sotalol 4. UTI - UA positive for leuk est, nitrate - Positive for e.coli - On vantin 5. Pulmonary HTN - Continue home tildalafil - Incentive spirometer - Dr. Yates consulted, following - Cont revatio for pulm htn 6. HLD - cont home med DVT ppx: Lovenox GI ppx: Protonix
[2017-04-18 08:21] LABS: INR 1.26 (0.93-1.08)
--- NOTE | 2017-04-18 09:31 | PN ---
DATE: 04/18/2017 PULMONARY PROGRESS NOTE SUBJECTIVE: The patient was seen and examined at bedside. She is receiving antibiotics in the form of Vantin 200 mg. She is not in respiratory distress. She is on nasal cannula. PHYSICAL EXAMINATION VITAL SIGNS: Temperature is 98.5, pulse is 102, respirations are 20, and pulse oximetry is 98% on nasal cannula. INTAKE AND OUTPUT: Positive 1900 mL. HEENT: Examination of head is normocephalic and atraumatic. NECK: Supple. No jugular vein distentions. CARDIOVASCULAR: S1 and S2. No S3, irregular. LUNGS: Few basilar rhonchi and no wheezing. EXTREMITIES: No pedal edema. SKIN: No acute skin rash. NEUROLOGIC: Limited at the present time. LABORATORY DATA: I reviewed today's blood work. WBC is 7.8, hemoglobin of 8.9, hematocrit of 28 and platelet count is 164,000. Her BUN is 22. The rest of the chemistries are normal. ASSESSMENT: 1. Pulmonary hypertension. 2. Left hip fracture, status post fall. 3. Chronic atrial fibrillation. PLAN: The patient appears comfortable. She is not short of breath at rest. Oxygen saturation is improving on nasal cannula. She was taking Adcirca for pulmonary hypertension. After discussion with Dr. Yates, Adcirca should be restarted. Shelton Tse MD
[2017-04-18] MEDS: TADALAFIL 20MG PO SCH (09:50)
[2017-04-18] MEDS: Enoxaparin 30 mg Syringe SC SCH ×2 (09:51→22:36)
[2017-04-18] MEDS: Magnesium Oxide 400 mg Tab UD PO SCH (09:52)
[2017-04-18] MEDS: diltiaZEM 240 mg/24 Hours CD Cap PO SCH (09:52)
[2017-04-18] MEDS: Cefpodoxime (Vantin) 200 mg Tab PO SCH ×2 (09:52→22:36)
[2017-04-18] MEDS: Pantoprazole 40 mg EC Tab PO SCH (09:53)
[2017-04-18] MEDS: POLYETHYLENE GLYCOL 3350 17 GM/Dose PACKET PO PRN (10:01)
[2017-04-18] MEDS: Sodium Chloride 0.9% 1,000 ML IV SCH (10:01)
[2017-04-19 05:59] LABS: BASO # 0.02 K/mm3 (0.0-2.0); BASO % 0.3 % (0.0-3.0); EOS # 0.2 (0.0-0.7); EOS % 2.3 % (1.5-5.0); GRAN # 5.06 (1.4-6.5); GRAN % 72.8 % (50.0-68.0); HEMATOCRIT 27.2 % (36.0-48.0); LYMPH # 0.8 (1.2-3.4); LYMPH % 12.1 % (22.0-35.0); MEAN CELL VOLUME 63.7 fl (80.0-105.0); MEAN CORPUSCULAR HEMOGLOBIN 20.4 pg (25.0-35.0); MEAN PLATELET VOLUME 10.3 fl (7.0-11.0); MONO # 0.9 (0.1-0.6); MONO % 12.5 % (1.0-6.0)
[2017-04-19] MEDS: Sodium Chloride 0.9% 1,000 ML IV SCH ×2 (06:00→13:25)
[2017-04-19 06:13] LABS: INR 1.27 (0.93-1.08)
[2017-04-19 07:07] LABS: ALKALINE PHOSPHATASE 59 U/L (38-126); ALT/SGPT 23 U/L (7-56); AST/SGOT 43 U/L (14-36); BILIRUBIN,TOTAL 0.7 mg/dL (0.2-1.3); BLOOD UREA NITROGEN 18 mg/dL (7-21); CALCIUM 8.9 mg/dL (8.4-10.5); CARBON DIOXIDE 26 mmol/L (21-33); CHLORIDE 106 mmol/L (98-107); GFR AFRICAN-AMERICAN > 60; GLUCOSE,RANDOM 115 mg/dL (70-110); POTASSIUM 4.5 mmol/L (3.6-5.0); SODIUM 139 mmol/L (132-148); TOTAL PROTEIN 5.9 g/dL (5.8-8.3)
--- NOTE | 2017-04-19 08:08 | PN ---
DATE: 04/19/2017 PULMONARY NOTE SUBJECTIVE: The patient appears comfortable this morning. She is not short of breath at rest. PHYSICAL EXAMINATION: VITAL SIGNS: Temperature is 98.7, pulse 83, respirations 18/20, blood pressure 114/74. Oxygen saturation on nasal cannula is 95%. HEENT: Normocephalic, atraumatic. NECK: No JVD. CARDIOVASCULAR: Systolic ejection murmur at the lower left sternal border. No S3 gallop. LUNGS: Clear bilaterally. EXTREMITIES: The patient is status post left hip surgery. There is mild edema noted in both lower extremities. There is no clubbing or cyanosis. The calves are nontender to palpation. GI: Abdomen is soft, nontender and nondistended. Bowel sounds are positive. SKIN: No acute rash. NEUROLOGIC: Exam is limited at the present time. IMPRESSION: 1. Left hip fracture, status post fall at home. 2. Pulmonary hypertension. 3. Chronic atrial fibrillation. 4. Systemic hypertension. PLAN: The patient appears comfortable this morning. She is not short of breath at rest. She does state to feeling much better overall. I did discuss the case with the night nurse at length. The night nurse stated that the patient had a very good night. On physical exam, her lungs remain clear. Oxygen saturation on nasal cannula is 95%. I will continue with the Revatio-- for her pulmonary hypertension. Inputs by Cardiology and Orthopedics are also noted. Clinical status of the patient is significantly improved. I will discuss the above with the attending physician. Abdias Yates MD MTDD
--- NOTE | 2017-04-19 08:32 | CP.PCM.PN ---
Subjective - Date & Time of Evaluation Date of Evaluation: 04/19/17 Time of Evaluation: 08:29 - Subjective Subjective: Pt awake, alert. Abduction pillow not in place. Afebrile L hip: dressing changed incision clean and dry no cellulitis or drainage Hg 8.7 POD# 4 Ortho stable continue abduction pillow Objective - Vital Signs/Intake and Output Vital Signs (last 24 hours): Temp Pulse Resp BP Pulse Ox 98.7 F 83 20 114/74 95 04/19/17 05:50 04/19/17 05:50 04/19/17 05:50 04/19/17 05:50 04/19/17 05:50 Intake and Output: 04/19/17 04/19/17 06:59 18:59 Intake Total 650 Balance 650 - Medications Medications: Current Medications Cefpodoxime Proxetil (Vantin) 200 mg PO Q12 JENIFER PRN Reason: Protocol Last Admin: 04/18/17 22:36 Dose: 200 mg Diltiazem HCl (Cardizem Cd) 240 mg PO DAILY [facility] Last Admin: 04/18/17 09:52 Dose: 240 mg Docusate Sodium (Colace) 100 mg PO DAILY [facility] Last Admin: 04/18/17 09:51 Dose: 100 mg Enoxaparin Sodium (Lovenox) 30 mg SC Q12H JENIFER PRN Reason: Protocol Last Admin: 04/18/17 22:36 Dose: 30 mg Fenofibrate (Tricor) 48 mg PO DAILY [facility] Last Admin: 04/18/17 09:51 Dose: 48 mg Ferrous Sulfate (Feosol) 324 mg PO TID [facility] Last Admin: 04/18/17 17:10 Dose: 324 mg Furosemide (Lasix) 40 mg PO DAILY [facility] Last Admin: 04/18/17 09:53 Dose: 40 mg Home Med (Home Med) 0 unit PO DAILY [facility] Last Admin: 04/18/17 09:50 Dose: 2 unit Sodium Chloride (Sodium Chloride 0.9%) 1,000 mls @ 50 mls/hr IV .Q20H [facility] Last Admin: 04/19/17 06:00 Dose: 50 mls/hr Vasopressin 20 units/ Sodium (Chloride) 101 mls @ 90.9 mls/hr IV .Q1H7M JENIFER; 0.3 U/MIN PRN Reason: Protocol Losartan Potassium (Cozaar) 100 mg PO DAILY [facility] Last Admin: 04/18/17 09:52 Dose: 100 mg Magnesium Oxide (Mag-Ox) 400 mg PO DAILY [facility] Last Admin: 04/18/17 09:52 Dose: 400 mg Morphine Sulfate (Morphine) 2 mg IVP Q4H PRN PRN Reason: Pain, severe (8-10) Last Admin: 04/16/17 21:57 Dose: 2 mg Ondansetron HCl (Zofran Inj) 4 mg IVP ONCE PRN PRN Reason: Nausea/Vomiting Pantoprazole Sodium (Protonix Ec Tab) 40 mg PO DAILY [facility] Last Admin: 04/18/17 09:53 Dose: 40 mg Polyethylene Glycol (Miralax) 17 gm PO TID PRN PRN Reason: Constipation Last Admin: 04/18/17 10:01 Dose: 17 gm Sotalol HCl (Betapace) 80 mg PO BID [facility] Last Admin: 04/18/17 20:28 Dose: 80 mg Warfarin Sodium (Coumadin) 5 mg PO 1800 [facility] PRN Reason: Protocol - Labs Labs: 04/19/17 05:30 04/19/17 05:30 PT 14.0 SECONDS (9.4-12.5) H 04/19/17 05:30 INR 1.27 (0.93-1.08) H 04/19/17 05:30 APTT 45.8 Seconds (25.1-36.5) H 04/13/17 15:15
[2017-04-19] MEDS: Magnesium Oxide 400 mg Tab UD PO SCH (09:49)
[2017-04-19] MEDS: TADALAFIL 20MG PO SCH (09:50)
[2017-04-19] MEDS: diltiaZEM 240 mg/24 Hours CD Cap PO SCH (09:50)
[2017-04-19] MEDS: Cefpodoxime (Vantin) 200 mg Tab PO SCH (09:50)
[2017-04-19] MEDS: Pantoprazole 40 mg EC Tab PO SCH (09:50)
[2017-04-19] MEDS ORDERED: Enoxaparin 60 mg Syringe SC SCH (09:52)
[2017-04-19 11:18] VITALS: TEMP 98.1; O2SAT 97
--- NOTE | 2017-04-19 12:28 | PN ---
CARDIOLOGY FOLLOWUP DATE: 04/19/2017 SUBJECTIVE: The patient is comfortable, without shortness of breath. OBJECTIVE: VITAL SIGNS: Blood pressure 128/81, heart rate is in the 70s. NECK: Negative JVD. LUNGS: Without rales. HEART: With S1, S2. EXTREMITIES: Without edema. LABORATORIES: Glucose is 115. Hemoglobin is stable at 8.7. IMPRESSION: 1. Status post hip fracture repair. 2. Anemia. 3. History of severe pulmonary hypertension. 4. Chronic atrial fibrillation. PLAN: Given these findings, the patient is currently on Lovenox and has been placed back on Coumadin. We will discontinue telemetry today. Toro Johnson MD
--- NOTE | 2017-04-19 14:23 | CP.PCM.DIS ---
Provider - Provider Date of Admission: 04/13/17 14:53 Attending physician: Mahendra Kohler MD Primary care physician: Mahendra Kohler MD Consults: Ortho, Card, Pulm Time Spent in preparation of Discharge (in minutes): 45 Hospital Course - Lab Results Lab Results: Micro Results 04/15/17 22:33 Naris MRSA Culture (Admit) - Final MRSA NOT DETECTED 04/14/17 07:25 Urine,Law Urine Culture - Final Escherichia Coli 04/15/17 08:35 Sputum Gram Stain - Final 04/15/17 08:35 Sputum Sputum Culture - Final Most Recent Lab Values WBC 7.0 10^3/ul (4.5-11.0) 04/19/17 05:30 RBC 4.27 10^6/uL (3.5-6.1) 04/19/17 05:30 Hgb 8.7 g/dL (12.0-16.0) L 04/19/17 05:30 Hct 27.2 % (36.0-48.0) L 04/19/17 05:30 MCV 63.7 fl (80.0-105.0) L 04/19/17 05:30 MCH 20.4 pg (25.0-35.0) L 04/19/17 05:30 MCHC 32.0 g/dl (31.0-37.0) 04/19/17 05:30 RDW 15.0 % (11.5-14.5) H 04/19/17 05:30 Plt Count 197 10^3/uL (120.0-450.0) 04/19/17 05:30 MPV 10.3 fl (7.0-11.0) 04/19/17 05:30 Gran % 72.8 % (50.0-68.0) H 04/19/17 05:30 Lymph % (Auto) 12.1 % (22.0-35.0) L 04/19/17 05:30 [place] % (Auto) 12.5 % (1.0-6.0) H 04/19/17 05:30 Eos % (Auto) 2.3 % (1.5-5.0) 04/19/17 05:30 Baso % (Auto) 0.3 % (0.0-3.0) 04/19/17 05:30 Gran # 5.06 (1.4-6.5) 04/19/17 05:30 Lymph # 0.8 (1.2-3.4) L 04/19/17 05:30 [place] # 0.9 (0.1-0.6) H 04/19/17 05:30 Eos # 0.2 (0.0-0.7) 04/19/17 05:30 Baso # 0.02 K/mm3 (0.0-2.0) 04/19/17 05:30 Neutrophils % (Manual) 85 % (50.0-70.0) H 04/13/17 15:15 Lymphocytes % (Manual) 8 % (22.0-35.0) L 04/13/17 15:15 Monocytes % (Manual) 7 % (1.0-6.0) H 04/13/17 15:15 Platelet Evaluation Normal (NORMAL) 04/13/17 15:15 Anisocytosis (manual) Slight 04/13/17 15:15 PT 14.0 SECONDS (9.4-12.5) H 04/19/17 05:30 INR 1.27 (0.93-1.08) H 04/19/17 05:30 APTT 45.8 Seconds (25.1-36.5) H 04/13/17 15:15 Sodium 139 mmol/L (132-148) 04/19/17 05:30 Potassium 4.5 mmol/L (3.6-5.0) 04/19/17 05:30 Chloride 106 mmol/L (98-107) 04/19/17 05:30 Carbon Dioxide 26 mmol/L (21-33) 04/19/17 05:30 Anion Gap 12 (10-20) 04/19/17 05:30 BUN 18 mg/dL (7-21) 04/19/17 05:30 Creatinine 0.7 mg/dl (0.7-1.2) 04/19/17 05:30 Est GFR ( Amer) > 60 04/19/17 05:30 Est GFR (Non-Af Amer) > 60 04/19/17 05:30 Random Glucose 115 mg/dL (70-110) H 04/19/17 05:30 Calcium 8.9 mg/dL (8.4-10.5) 04/19/17 05:30 Phosphorus 3.2 mg/dL (2.5-4.5) 04/14/17 06:00 Magnesium 2.0 mg/dL (1.7-2.2) 04/14/17 06:00 Total Bilirubin 0.7 mg/dL (0.2-1.3) 04/19/17 05:30 AST 43 U/L (14-36) H D 04/19/17 05:30 ALT 23 U/L (7-56) 04/19/17 05:30 Alkaline Phosphatase 59 U/L (38-126) 04/19/17 05:30 Total Protein 5.9 g/dL (5.8-8.3) 04/19/17 05:30 Albumin 2.9 g/dL (3.0-4.8) L 04/19/17 05:30 Globulin 3.0 gm/dL 04/19/17 05:30 Albumin/Globulin Ratio 1.0 (1.1-1.8) L 04/19/17 05:30 Urine Color Yellow (YELLOW) 04/15/17 08:35 Urine Appearance Clear (CLEAR) 04/15/17 08:35 Urine pH 6.0 (4.7-8.0) 04/15/17 08:35 Ur Specific [place] >= 1.030 (1.005-1.035) 04/15/17 08:35 Urine Protein 30 mg/dL (<30 mg/dL) H 04/15/17 08:35 Urine Glucose (UA) Negative mg/dL (NEGATIVE) 04/15/17 08:35 Urine Ketones Negative mg/dL (NEGATIVE) 04/15/17 08:35 Urine Blood Large (NEGATIVE) H 04/15/17 08:35 Urine Nitrate Negative (NEGATIVE) 04/15/17 08:35 Urine Bilirubin Small (NEGATIVE) H 04/15/17 08:35 Urine Urobilinogen 1.0 E.U./dL (<1 E.U./dL) H 04/15/17 08:35 Ur Leukocyte Esterase Small [place]/uL (NEGATIVE) H 04/15/17 08:35 Urine RBC Tntc /hpf (0-2) 04/15/17 08:35 Urine WBC 10 - 15 /hpf (0-6) 04/15/17 08:35 Ur Epithelial Cells 4 - 5 /hpf (0-5) 04/15/17 08:35 Amorphous Sediment Few 04/15/17 08:35 Urine Bacteria Many (NEG) 04/15/17 08:35 Hyaline Casts 0 - 2 /hpf 04/15/17 08:35 Fine Granular Casts 0 - 2 /hpf (0-2) 04/15/17 08:35 Urine Other Uyeast 04/15/17 08:35 Blood Type O POSITIVE 04/13/17 15:15 Blood Type Confirm O POSITIVE 04/13/17 16:24 Antibody Screen Negative 04/13/17 15:15 Crossmatch See Detail 04/13/17 15:15 BBK History Checked No verified bt 04/13/17 15:15 - Hospital Course Hospital Course: 87 y/o female with a pmhx of Afib, CHF, HTN, Pulm HTN, HLD, SUSIE. Osteoarthritis , hypokalemia presents L hip pain after a fall. In the ED basic lab work was done. Hip/Pelvis x-ray was done and showed displaced L sided subcapital hip fracture. CXR showed no active dx. Cardiology, pulmonary and ortho were consulted. Pt was admitted to [facility] for close monitoring. Ortho recommended surgical repair. Cardiology stated that pt was at increased risk for anesthesia due to patients pulm HTN but benefit outweighs the risk. Pulm recommended that patients is at increased risk as well but no contraindication from pulm standpoint. Echo showed normal EF, mod MR, mod severe pulm HTN. Orthopedic surgery took the patient for L hip arthroplasty. Procedure went well with no complications. Pt was observed overnight in the ICU for close monitoring. Pt did well. Ortho recommended abduction pillow and physical therapy. Today she is doing well no complaints at this time. Pt denies any f/c, sob, cp, abd pain, n/v /d. Discharge Exam - Head Exam Head Exam: ATRAUMATIC, NORMOCEPHALIC - Eye Exam Eye Exam: EOMI, PERRL - ENT Exam ENT Exam: Mucous Membranes Moist - Neck Exam Neck exam: Full Rom - Respiratory Exam Respiratory Exam: Clear to PA & Lateral. absent: Rales, Rhonchi, Wheezes - Cardiovascular Exam Cardiovascular Exam: REGULAR RHYTHM, RRR, +S1, +S2 - GI/Abdominal Exam GI & Abdominal Exam: Normal Bowel Sounds, Soft - Neurological Exam Neurological exam: Alert, CN II-XII Intact, Oriented x3 - Psychiatric Exam Psychiatric exam: Normal Affect, Normal Mood - Skin Skin Exam: Dry, Intact, Warm Discharge Plan - Discharge Medications Prescriptions: Warfarin [Coumadin] 5 mg PO 1800 5 Days #5 tab - Follow Up Plan Condition: STABLE Disposition: REHAB FACILITY/REHAB UNIT Patient education suggested?: Yes Instructions: Atrial Flutter (GEN), ORIF of a Hip Fracture in Children (GEN) Additional Instructions: Cont Vantin for another 4-7 days. Cont Coumadin 5mg until therapeutic INR of 2-3 is reached. Take your medications as prescribed. Use abduction pillow. Follow up with orthopedic surgery with in 1-2 weeks. Referrals: Mahendra Kohler MD [Primary Care Provider] -
[2017-04-19 14:40] VITALS: BP 135/96; PULSE 110; RESP 19
== END 2017-04-19 18:17 | DRG 470 ==
LOC: ED 13:21 → ERH 14:53 → 5RSO 17:15 → ICU 04-15 22:11 → 2RSO 04-16 20:56
PROVIDERS: ADMIT Internal Medicine; ATTEND Internal Medicine
PROC: 30233K1 Transfusion of Nonautologous Frozen Plasma into Peripheral Vein, Percutaneous Approach (ICD-10-PCS; 2017-04-15)
PROC: 0SRS0JA Replacement of Left Hip Joint, Femoral Surface with Synthetic Substitute, Uncemented, Open Approach (ICD-10-PCS; principal; 2017-04-15 17:00)
DX: S72.012A Unspecified intracapsular fracture of left femur, initial encounter for closed fracture (principal); I11.0 Hypertensive heart disease with heart failure; I27.20 Pulmonary hypertension, unspecified; I42.0 Dilated cardiomyopathy; I50.9 Heart failure, unspecified; N39.0 Urinary tract infection, site not specified; W06.XXXA Fall from bed, initial encounter; Y92.009 Unspecified place in unspecified non-institutional (private) residence as the place of occurrence of the external cause; E78.5 Hyperlipidemia, unspecified; E87.6 Hypokalemia; I48.2 Chronic atrial fibrillation; M19.90 Unspecified osteoarthritis, unspecified site; Z79.01 Long term (current) use of anticoagulants; Z87.81 Personal history of (healed) traumatic fracture; Z87.891 Personal history of nicotine dependence; R40.2412 Glasgow coma scale score 13-15, at arrival to emergency department; Z98.42 Cataract extraction status, left eye; Z98.41 Cataract extraction status, right eye; D50.9 Iron deficiency anemia, unspecified; Z78.1 Physical restraint status